=== PATIENT | male | born 1960 | race Caucasian/White ===

== ENCOUNTER 2023-06-03 10:00 | Outpatient (OUT) | payer OTHER, SELFPAY ==
--- NOTE | 2023-06-03 10:07 | CT_ITS ---
[address] [address] Patient Name: LYNETTE RODRIGUEZ MRN: [id number] date: 1960 Sex: M Assigned Patient Location: CT Current Patient Location: CT Accession/Order Number: [id number] Exam Date: 06/03/2023 10:11 Report Date: 06/03/2023 14:10 At the request of: ELSY HANLEY Procedure: CT chest wo con EXAMINATION: CT chest wo con HISTORY: Pulmonary Nodule follow-up COMPARISON: CT chest 06/06/2022, 11/23/2020 TECHNIQUE: Axial, Coronal, and Sagittal images were created without the administration of IV contrast material. Dose reduction techniques were achieved by using automated exposure control and/or adjustment of mA and/or kV according to patient size and/or use of iterative reconstruction technique. FINDINGS: LUNGS: Right lateral cardiac phrenic angle stable 6 mm nodule. Lateral left upper lobe at level of hilum stable 4 mm nodule. Stable areas of scarring within posterior right lung base and posterior lateral left lung base near the costophrenic angles. No new or suspicious findings. PLEURA: No mass, effusion, or pneumothorax. VASCULATURE: No abnormality. DOMINGO: No mass or pathologic adenopathy. MEDIASTINUM: No mass or pathologic adenopathy. CARDIAC: No enlargement, pericardial thickening, or pericardial effusion. AORTA: No aneurysm or dissection. CHEST WALL: No mass or axillary adenopathy BONES: No bone lesion or fracture. LIMITED ABDOMEN: No suspicious findings. Limited images of the upper abdomen. OTHER: Negative. CT/CT chest wo con IMPRESSION: 1. Lung-RADS 2- Benign Appearance or Behavior. Nodules with a very low likelihood of becoming a clinically active cancer due to size or lack of growth. Follow-up CT Chest in 1 year. Electronically authenticated by: JOSE YING Date: 06/03/2023 14:10
== END 2023-06-03 10:01 | disposition home or self-care (01) ==
LOC: CT 10:00
PROVIDERS: PCP Internal Medicine; Visit Provider Internal Medicine
DX: R91.1 Solitary pulmonary nodule (principal)
CPT/HCPCS: 71250

== ENCOUNTER 2023-06-09 09:02 | Outpatient (OUT) | payer OTHER, SELFPAY ==
--- OUTSIDE RECORDS SUMMARY | 2023-06-09 09:21 | XMS_ITS | CCD ---
Author Name Unknown Address [address] [facility] [address] [place] [address] Organization [facility] Care Team Providers Care Payment Collector Name Role Phone PROVIDER, UNKNOWN Attending Unavailable PROVIDER, UNKNOWN Admitting Unavailable JH OGLESBY Referring Unavailable Mp Jaquez Unavailable Sixto Romeo II Unavailable Cindy Reed Unavailable Jose Mccann Unavailable Jeniffer Bañuelos Unavailable Sixto Romeo II Admitting UnavailSixto Jain II Attending Unavailabl e Jose Mccann Primary Care Unavailable Jeniffer Bañuelos Admitting Unavailable Jeniffer Bañuelos Attending Unavailable Jose Mccann Primary Care Unavailable DO Jose Mccann Primary Care Provider AARTI Bañuelos Attending Provider RAMY, DR CHIN Admitting Unavailable BALL, DR CHIN Primary Care Unavailable RAMY, DR CHIN Consulting Unavailable RAMY, DR CHIN Attending Unavailable HEDY JOINER V Consulting Unavailable REQUEST, DR GARCIA LISTED Admitting Unavaila ble RAMY, DR CHIN Primary Care Unavailable REQUEST, DR GARCIA LISTED Consulting Unavaila ble REQUEST, DR GARCIA LISTED Attending Unavaila ble RAMY, DR CHIN Primary Care Unavailable RAMY, DR CHIN Consulting Unavailable RAMY, DR CHIN Attending Unavailable RAMY, DR CHIN Admitting Unavailable HEDY JOINER V Consulting Unavailable RAMY, DR CHIN Primary Care Unavailable RAMY, DR CHIN Consulting Unavailable RAMY, DR CHIN Attending Unavailable BALL, DR CHIN Admitting Unavailable BALL, DR CHIN Admitting Unavailable BALL, DR CHIN Primary Care Unavailable RAMY, DR CHIN Consulting Unavailable RAMY, DR CHIN Attending Unavailable JOSE YING Consulting Unavailable Medications Current Medications Medication Drug Class(es) Dates Sig (Normalized) Sig (Original) acetaminophen 500 mg oral tablet (18 sources) Start: 05-31-2021 take 2 tablets by mouth every eight hours as needed for pain Acetaminophen 500 MG 2 tablets for pain Orally every 8 hrs NEEDED for 30 days MED TO BED UPON DISCHARGE 06/25/2021 May, Active acetaminophen 325 mg / HYDROcodone bitartrate 5 mg oral tablet (1 source) Opioid Agonist Start: 04-09-2021 [id number] 60 actuat albuterol 0.09 mg/actuat metered dose inhaler (4 sources) beta2-Adrenergic Agonist Start: 08-24-2022 take 2 puff(s) by inhalation four times daily as needed Albuterol Sulfate HFA 108 (90 Base) MCG/ACT 2 puffs Inhalation 4 times a day prn August, Active Start: 08-24-2022 take 2 puff(s) by in halation four times daily as needed Albuterol Sulfate HFA 108 (90 Base) MCG/ACT 2 puffs Inhalation 4 times a day prn August, Active allopurinol 100 mg oral tablet (20 sources) Xanthine Oxidase Inhibitor Start: 04-27-2019 take 100 mg by mouth once daily Allopurinol Active 100 MG PO Daily April 27, 2019 1:00am amLODIPine 5 mg oral tablet (1 source) Dihydropyridine Calcium Channel Ana Maria Start: 04-27-2019 take 5 mg by mouth once daily Amlodipine Active 5 MG PO Daily April 27, 2019 1:00am aspirin 81 mg oral tablet (15 sources) Platelet Aggregation Inhibitor, Nonsteroidal Anti-inflammatory Drug Start: 05-31-2021 take 1 tablet by mouth twice daily Aspirin 81 MG 1 tablet Orally BID for 35 days MED TO BED UPON DISCHARGE 06/25/2021 May, Active Start: 04-28-2019 take 81 mg by mouth once daily Aspirin Active 81 MG PO Daily April 28, 2019 1:00am atorvastatin 20 mg oral tablet (20 sources) HMG-CoA Reductase Inhibitor Start: 04-28-2019 take 20 mg by mouth once daily in the evening Atorvastatin Active 20 MG PO Every evening April 28, 2019 1:00am cefadroxil 500 mg oral capsule (5 sources) Cephalosporin Antibacterial Start: 08-01-2021 take 1 capsule by mouth every twelve hours Cefadroxil 500 MG 1 tablet Orally every 12 hrs for 7 days 20 Apr, 2022 Active Start: 05-31-2021 take 1 capsule by [facility] every twelve hours Cefadroxil 500 MG 1 tablet Orally every 12 hrs for 7 days MED TO BED UPON DISCHARGE 06/25/2021 May, Active celecoxib 200 mg oral capsule (5 sources) Nonsteroidal Anti-inflammatory Drug Start: 05-31-2021 take 1 capsule by mouth every twelve hours Celecoxib 200 MG 1 capsule with food Orally Twice a day for 30 day(s) MED TO BED UPON DISCHARGE 06/25/2021 May, Active docusate sodium 50 mg / sennosides, fci 8.6 mg oral tablet (4 sources) Start: 05-31-2021 take 2 tablets by mouth every twenty-four hours Senokot S 8.6-50 MG 2 tablets Orally Once a day for 30 day(s) MED TO BED UPON DISCHARGE 06/25/2021 May, Active doxycycline hyclate 100 mg oral tablet (4 sources) Tetracycline-class Drug Start: 08-24-2022 take 1 tablet by mouth every twelve hours Doxycycline Hyclate 100 MG 1 tablet Orally Twice a day for 10 day(s) August, Active ergocalciferol 1.25 mg oral capsule (7 sources) Provitamin D2 Compound Start: 06-05-2021 take 1250 ug by mouth every week Ergocalciferol (Vitamin D2) Active 1250 MCG PO every week June 05, 2021 1:00am takes every Start: 05-21-2021 take 1 capsule by [facility] every week Ergocalciferol 1.25 MG (08823 UT) 1 capsule Orally Once a week for 56 days May, Active ibuprofen 200 mg oral tablet (20 sources) Nonsteroidal Anti-inflammatory Drug take 1 tablet by mouth three times daily at mealtime as needed Ibuprofen 200 MG 1 tablet with food or milk as needed Orally Three times a day Active lisinopril 40 mg oral tablet (20 sources) Angiotensin Converting Enzyme Inhibitor Start: 04-27-19 take 40 mg by mouth once daily Lisinopril Active 40 MG PO Daily April 27, 2019 1:00am metoprolol tartrate 25 mg oral tablet (20 sources) beta-Adrenergic Ana Maria Start: 06-05-19 take 12.5 mg by mouth once daily Metoprolol Tartrate Active 12.5 MG PO Daily June 05, 2021 3:03pm Start: 04-28-2019 End: 06-05-2021 take 12.5 mg by mouth twice daily Metoprolol Tartrate Discontinued 12.5 MG PO Twice daily April 28, 2019 1:00am June 05, 2021 3:03pm take 1 tablet by andreina th twice daily Metoprolol Tartrate 25 MG TAKE 1 TABLET BY MOUTH TWICE A DAY for 90 Active take 1 tablet by andreina th every twenty-four hours Metoprolol Succinate ER 25 MG 1 tablet Orally Once a day Active morphine sulfate 15 mg extended release oral tablet (4 sources) Opioid Agonist Start: 05-31-2021 take 1 tablet by mouth every twelve hours for pain Morphine Sulfate ER 15 MG 1 tablet for breakthrough pain only Orally every 12 hrs for 5 days MED TO BED UPON DISCHARGE 06/25/2021 May, Active nitroglycerin 0.4 mg sublingual tablet (1 source) Nitrate Vasodilator Start: 04-28-2019 Nitroglycerin Active 0.4 MG SUBLINGUAL Every 5 minutes x 3 doses April 28, 2019 1:00am ondansetron 8 mg oral tablet (4 sources) Serotonin-3 Receptor Antagonist Start: 05-31-2021 take 1 tablet by mouth three times daily as needed for nausea Ondansetron HCl 8 MG 1 tablet as needed for nausea Orally TID for 10 days MED TO BED UPON DISCHARGE 06/25/2021 May, Active oxyCODONE hydrochloride 5 mg oral tablet (4 sources) Opioid Agonist Start: 05-31-2021 take 1 tablet by mouth every four hours as needed for pain oxyCODONE HCl 5 MG 1 tablet as needed for pain Orally every 4 hrs for 7 days MED TO BED UPON DISCHARGE 06/25/2021 May, Active polyethylene glycol 3350 19022 mg powder for oral solution (4 sources) Osmotic Laxative Start: 05-31-2021 MiraLax 17 GM 1 packet mixed with 8 ounces of fluid Orally Once a day for 7 days MED TO BED UPON DISCHARGE 06/25/2021 May, Active predniSONE 20 mg oral tablet (4 sources) Start: 08-24-2022 take 1 tablet by mouth every twelve hours predniSONE 20 MG 1 tablet Orally bid for 5 day(s) August, Active traMADol hydrochloride 50 mg oral tablet (4 sources) Opioid Agonist Start: 05-31-2021 take 1 tablet by mouth every six hours as needed for pain traMADol HCl 50 MG 1 tablet as needed for pain Orally every 6 hrs for 10 days MED TO BED UPON DISCHARGE 06/25/2021 17 May, 2021 Active Wrist Splint/Cock-Up/Left L - (2 sources) Start: 08-07-2022 Wrist Splint/Cock-Up/Left L - as directed wrist splint was not dispensed Jul, Active Problems Active Problems Problem Classification Problem Date Documented Date Episodic/Chronic Chronic obstructive pulmonary disease and bronchiectasis (1 source) Bronchitis, not specified as acute or chronic Episodic Disorders of lipid metabolism (12 sources) Hypercholesterolemia; Translations: [Pure hypercholesterolemia, unspecified] Chronic Essential hypertension (12 sources) Hypertensive disorder; Translations: [Essential (primary) hypertension] Chronic Genitourinary symptoms and ill-defined conditions (3 sources) Polyuria; Translations: [Polyuria] Episodic Nonspecific chest pain (1 source) Chest pain; Translations: [Chest pain, unspecified] 04-27-2019 Episodic Osteoarthritis (20 sources) Arthritis of left hip; Translations: [Unilateral primary osteoarthritis, left hip] Onset: 05-09-2021 Resolved: 09-12-2021 Chronic Osteoporosis (20 sources) Senile osteoporosis; Translations: [Age-related osteoporosis without current pathological fracture] Onset: 05-09-2021 Resolved: 05-09-2021 Chronic Other connective tissue disease (14 sources) History of total replacement of left hip joint; Translations: [Presence of left artificial hip joint] Chronic Other connective tissue disease (3 sources) Presence of left artificial hip joint Onset: 08-01-2021 Resolved: 09-12-2021 Chronic Other connective tissue disease (10 sources) H/O: gout; Translations: [Personal history of other diseases of the musculoskeletal system and connective tissue] Episodic Other connective tissue disease (1 source) Personal history of other diseases of the musculoskeletal system and connective tissue Episodic Other lower respiratory disease (10 sources) Nodule of lung; Translations: [Solitary pulmonary nodule] Episodic Other lower respiratory disease (7 sources) Solitary pulmonary nodule; Translations: [SOLITARY PULMONARY NODULE] Onset: 06-06-2022 Episodic Other male genital disorders (5 sources) Other specified disorders of the male genital organs; Translations: [OTHER SPEC D/O MALE GENITAL ORGANS] Onset: 07-10-2022 Episodic Other nervous system disorders (20 sources) Carpal tunnel syndrome of left wrist; Translations: [Carpal tunnel syndrome, left upper limb] Chronic Other nervous system disorders (1 source) Carpal tunnel syndrome, left upper limb Onset: 04-03-2021 Resolved: 04-03-2021 Chronic Other non-traumatic joint disorders (1 source) Pain in left wrist Episodic Other screening for suspected conditions (not mental disorders or infectious disease) (12 sources) Prostate specific antigen measurement; Translations: [Encounter for screening for malignant neoplasm of prostate] Onset: 06-14-2022 Episodic Residual codes; unclassified (20 sources) Obstructive sleep apnea syndrome; Translations: [Obstructive sleep apnea (adult) (pediatric)] Chronic Residual codes; unclassified (8 sources) Obstructive sleep apnea (adult) (pediatric) Onset: 05-09-2021 Resolved: 09-12-2021 Chronic Sprains and strains (1 source) Unspecified sprain of left wrist, initial encounter Episodic Substance-related disorders (16 sources) Tobacco dependence in remission; Translations: [Nicotine dependence, cigarettes, in remission] Chronic Unclassified (1 source) Pain in left wrist; Translations: [Pain in left wrist] Onset: 08-07-2022 Unclassified (1 source) M16.12 - Unilateral primary osteoarthritis, left hip; Translations: [M16.12 - Unilateral primary osteoarthritis, left hip] Onset: 09-12-2021 Past or Other Problems Problem Classification Problem Date Documented Date Episodic/Chronic Other aftercare (1 source) Other care home (current) drug therapy Onset: 05-09-2021 Resolved: 05-09-2021 Episodic Other non-traumatic joint disorders (1 source) Pain in left hip Onset: 05-09-2021 Resolved: 05-09-2021 Episodic Residual codes; unclassified (3 sources) Other specified postprocedural states Onset: 04-09-2021 Resolved: 07-02-2021 Episodic Unclassified (1 source) Polyuria R35.89 Results Test Name Value Interpretation Reference Range Facility GLYCOHEMOGLOBIN A1Con 2022 ADA RECOMMENDATION SEE BELOW Normal [facility] Comment on above: Result Comment: ADA RECOMMENDED LIMIT 4.0 - 6.0 ADA THERAPEUTIC TARGET < 7.0 ACTION SUGGESTED > 7.0 Performed By: #### D ATA1C #### [facility] [address], [place] [address] Dr. Sydnie Reeves Glucose [Mass/Vol] 120 mg/dL Normal [facility] Comment on above: Performed By: #### D ATA1C #### [facility] [address], [place] [address] Dr. Sydnie Reeves HbA1c (Bld) [Mass fraction] 5.8 % Normal 4.5-6.2 [facility] Comment on above: Performed By: #### D ATA1C #### [facility] [address], [place] [address] Dr. Sydnie Reeves XR wrist LT min 3V*on 2022 XR wrist LT min 3V* [facility] [employer] Other XR wrist LT min 3V* [facility] [employer] Other XR wrist LT min 3V* [address] [place] [address] [employer] Other XR wrist LT min 3V* [place] [address] [employer] Other XR wrist LT min 3V* XRay Report [place] [employer] Other XR wrist LT min 3V* Signed [employer] Other XR wrist LT min 3V* Patient: Lynette Santamaria MR#: [id number] [place] [employer] Other XR wrist LT min 3V* 2 [employer] Other XR wrist LT min 3V* : 1960 Acct:[id number] [employer] Other XR wrist LT min 3V* Age/Sex: 62 / M ADM Date: 08/07/22 [employer] Other XR wrist LT min 3V* Loc: XDUCLY Room: Type: [facility] CLI [employer] Other XR wrist LT min 3V* Attending Dr: Jeniffer BROUSSARD [employer] Other XR wrist LT min 3V* Copies to: AARTI Escobar [employer] Other XR wrist LT min 3V* Ordering Provider: AARTI Escobar [employer] Other XR wrist LT min 3V* Date of Service: 08/07/22 [employer] Other XR wrist LT min 3V* XR/XR wrist LT min 3V*: Left wrist pain [employer] Other XR wrist LT min 3V* 4 views of the LEFT wrist plain film [employer] Other XR wrist LT min 3V* COMPARISON: None [employer] Other XR wrist LT min 3V* HISTORY: LEFT wrist injury. Ulnar-sided pain and swelling. [employer] Other XR wrist LT min 3V* Acute findings: None corticated bony density near the distal radius likely represents benign [employer] Other XR wrist LT min 3V* finding. [employer] Other XR wrist LT min 3V* Degenerative change: Moderate 1st carpometacarpal degenerative change present. Mild prominence of [employer] Other XR wrist LT min 3V* the scapholunate interspace identified. 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 [employer] Other XR wrist LT min 3V* Soft tissue findings : Mild chondrocalcinosis of the triangular fibrocartilage present. [employer] Other XR wrist LT min 3V* Joint effusion: None [employer] Other XR wrist LT min 3V* Postop changes: None [employer] Other XR wrist LT min 3V* XR/XR wrist LT min 3V* [employer] Other XR wrist LT min 3V* IMPRESSION: No acute bony findings. [employer] Other XR wrist LT min 3V* Impression dictated by: Oz Clancy M.D.08/07/2022 10:08 AM [employer] Other XR wrist LT min 3V* Dictation Location: [place] [address] [employer] Other XR wrist LT min 3V* Transcribed By: PWS 08/07/22 1008 [employer] Other XR wrist LT min 3V* Dictated By: Oz Clancy DO 08/07/22 1005 [employer] Other XR wrist LT min 3V* Signed By: [employer] Other XR wrist LT min 3V* 08/07/22 1008 No rt [employer] Other XR wrist LT min 3V* [facility] [place] [address] [place] [address] XRay Report Signed Patient: Lynette Santamaria MR#: [id number] 2 : 1960 Acct:[id number] Age/Sex: 62 / M ADM Date: 08/07/22 Loc: [facility] Room: Type: [facility] Attending Dr: Jeniffer BROUSSARD Copies to: AARTI Escobar Ordering Provider: AARTI Escobar Date of Service: 08/07/22 XR/XR wrist LT min 3V*: Left wrist pain 4 views of the LEFT wrist plain film COMPARISON: None HISTORY: LEFT wrist injury. Ulnar-sided pain and swelling. Acute findings: None corticated bony density near the distal radius likely represents benign finding. Degenerative change: Moderate 1st carpometacarpal degenerative change present. Mild prominence of the scapholunate interspace identified. 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 Soft tissue findings: Mild chondrocalcinosis of the triangular fibrocartilage present. Joint effusion: None Postop changes: None XR/XR wrist LT min 3V* IMPRESSION: No acute bony findings. Impression dictated by: Oz Clancy M.D.08/07/2022 10:08 AM Dictation Location: [place] [address] Transcribed By: [facility] 08/07/22 1008 Dictated By: Oz Clancy DO 08/07/22 1005 Signed By: 08/07/22 1008 [facility] US SCROTUMon 07-11-2022 US SCROTUM EXAMINATION: US SCROTUM HISTORY: Disorder of male genital organ COMPARISON: No relevant comparison available. TECHNIQUE: High-resolution sonographic imaging of the scrotum and contents was performed. FINDINGS: The right testicle is normal in size, contour and homogeneous echotexture measuring 4.0 x 2.9 x 3.1 cm., Normal Color and Doppler flow. The right epididymis contains a circumscribed oval cystic lesion with internal debris measuring 2.5 x 1.8 x 1.5 cm. I favor a spermatocele. Moderate right hydrocele measuring 4.1 cm. No right varicocele. The left testicle is normal in size, contour and homogeneous echotexture measuring 3.7 x 2.3 x 2.8 cm, normal Color and Doppler flow. The left epididymis is normal in appearance. Moderate left hydrocele measuring 4.6 cm. No left varicocele IMPRESSION: 2.5 cm right epididymal cystic lesion, I favor a spermatocele Moderate bilateral hydroceles Electronically authenticated by: HEDY JOINER Date: 2022-07-11 07:55 Normal [facility] CBC AUTO DIFFon 06-10-2022 BASO # 0.0 103/ul Normal 0.0-0.1 [facility] Comment on above: Performed By: #### C BC #### [facility] [address] [place] [address] Dr. Sydnie Reeves Basophils/100 WBC (Bld) 0.4 % Normal 0.2-2.0 [facility] Comment on above: Performed By: #### C BC #### [facility] [address] [place] [address] Dr. Sydnie Reeves EO # 0.2 103/ul Normal 0.0-0.7 [facility] Comment on above: Performed By: #### C BC #### [facility] [address] [place] [address] Dr. Sydnie Reeves Eosinophils/100 WBC (Bld) 3.3 % Normal 0.9-7.0 [facility] Comment on above: Performed By: #### C BC #### [facility] [address] [place] [address] Dr. Sydnie Reeves Erythrocyte distribution width (RBC) [Ratio] 13.1 % Normal 11.0-15.0 [facility] Comment on above: Performed By: #### C BC #### [facility] [address] [place] [address] Dr. Sydnie Reeves Hematocrit (Bld) [Volume fraction] 44.0 % Normal 42.0-54.0 [facility] Comment on above: Performed By: #### C BC #### [facility] [address] [place] [address] Dr. Sydnie Reeves Hemoglobin (Bld) [Mass/Vol] 15.1 g/dL Normal 14.0-18.0 [facility] Comment on above: Performed By: #### C BC #### [facility] [address] [place] [address] Dr. Sydnie Reeves IG # 0.03 10e3/ul Normal 0.00-0.03 [facility] Comment on above: Performed By: #### C BC #### [facility] [address] [place] [address] Dr. Sydnie Reeves IG % 0.7 % Critically high 0.0-0.5 [facility] Comment on above: Performed By: #### C BC #### [facility] [address] [place] [address] Dr. Sydnie Reeves LYMPH # 1.2 103/ul Normal 1.2-3.8 [facility] Comment on above: Performed By: #### C BC #### [facility] [address] [place] [address] Dr. Sydnie Reeves Lymphocytes/100 WBC (Bld) 24.9 % Normal 20.5-60.0 [facility] Comment on above: Performed By: #### C BC #### [facility] [address] [place] [address] Dr. Sydnie Reeves MANUAL DIFF REQ NO Normal [facility] Comment on above: Performed By: #### C BC #### [facility] [address] [place] [address] Dr. Sydnie Reeves MCH (RBC) [Entitic mass] 30.4 pg Normal 25.9-34.0 [facility] Comment on above: Performed By: #### C BC #### [facility] [address] [place] [address] Dr. Sydnie Reeves MCHC (RBC) [Mass/Vol] 34.3 g/dL Normal 29.9-35.2 [facility] Comment on above: Performed By: #### C BC #### [facility] [address] [place] [address] Dr. Sydnie Reeves MCV (RBC) [Entitic vol] 88.7 fL Normal 80.0-94.0 [facility] Comment on above: Performed By: #### C BC #### [facility] [address] [place] [address] Dr. Sydnie Reeves MONO # 0.5 103/ul Normal 0.3-0.8 [facility] Comment on above: Performed By: #### C BC #### [facility] [address] [place] [address] Dr. Sydnie Reeves Monocytes/100 WBC (Bld) 10.2 % Normal 1.7-12.0 [facility] Comment on above: Performed By: #### C BC #### [facility] [address] [place] [address] Dr. Sydnie Reeves NEUT # 2.8 103/ul Normal 1.4-6.5 [facility] Comment on above: Performed By: #### C BC #### [facility] [address] [place] [address] Dr. Sydnie Reeves Neutrophils/100 WBC (Bld) 60.5 % Normal 43.0-75.0 [facility] Comment on above: Performed By: #### C BC #### [facility] [address] [place] [address] [address] Sydnie Reeves Platelet mean volume (Bld) [Entitic vol] 10.5 fL Normal 9.5-13.5 [facility] Comment on above: Performed By: #### C BC #### [facility] [address] [place] [address] [address] Sydnie Reeves PLT 202 103/ul Normal 150-450 [facility] Comment on above: Performed By: #### C BC #### [facility] [address] [place] [address] [address] Sydnie Reeves RBC 4.96 106/ul Normal 4.70-6.10 [facility] Comment on above: Performed By: #### C BC #### [facility] [address] [place] [address] [address] Sydnie Reeves WBC 4.6 103/ul Normal 4.0-11.0 [facility] Comment on above: Performed By: #### C BC #### [facility] [address] [place] [address] [address] Sydnie Reeves Complete Blood Count and Dif julio 06-10-2022 Anisocytosis Ql (Bld) [facility] [employer] Other Basophilic stippling LM Ql (Bld) [facility] [employer] Other RBC morphology finding Nom (Bld) [facility] [employer] Other Comprehensive Metabolic Pane pablo 06-10-2022 Comprehensive Metabolic Panel [facility] [employer] Other LIPID PROFILEon 06-10-2022 CHOL-HDL RATIO NORM SEE BELOW Normal [facility] Comment on above: Result Comment: 3.3 - 4.4 LOW RISK 4.4 - 7.1 AVERAGE RISK 7.1 - 11.0 MODERATE RISK >11.0 HIGH RISK Performed By: #### C MP, LIPID #### [facility] [address] [place] [address] [address] Sydnie Reeves Cholesterol [Mass/Vol] 172 mg/dL Normal <=200 [facility] Comment on above: Performed By: #### C MP, LIPID #### [facility] [address] [place] [address] [address] Sydnie Reeves Cholesterol in HDL [Mass/Vol] 71 mg/dL Critically high 40-60 [facility] Comment on above: Performed By: #### C MP, LIPID #### [facility] [address] [place] [address] [address] Sydnie Reeves Cholesterol in LDL [Mass/Vol] 62.2 mg/dL Normal [facility] Comment on above: Performed By: #### C MP, LIPID #### [facility] [address] [place] [address] [address] Sydnie Reeves Cholesterol.total/C holesterol in HDL [Mass ratio] 2.4 {ratio} Normal [facility] Comment on above: Performed By: #### C MP, LIPID #### [facility] [address] [place] [address] [address] Sydnie Reeves HDL NORMAL > or = 60 mg/dl - LO W CARDIOVASCULAR RISK <40 mg/dl - HIGH CARDIOVASCULAR RISK Normal [facility] Comment on above: Performed By: #### C MP, LIPID #### [facility] [address] [place] [address] [address] Sydnie Reeves LDL CALC NORMAL SEE BELOW Normal [facility] [facility] Comment on above: Result Comment: <100 mg/dl OPTIMAL 100 - 129 mg/dl NEAR OR ABOVE OPTIMAL 130 - 159 mg/dl BORDERLINE HIGH 160 - 189 mg/dl HIGH >190 mg/dl VERY HIGH Performed By: #### C MP, LIPID #### [facility] [address] [address] [address] Sydnie Reeves Triglyceride [Mass/Vol] 194 mg/dL Critically high <=150 [facility] Comment on above: Performed By: #### C MP, LIPID #### [facility] [address] [address] [address] Sydnie Reeves VLDL CALC 38.8 mg/dL Normal [facility] Comment on above: Performed By: #### C MP, LIPID #### [facility] [address] [address] [address] Sydnie Reeves PROF 14(COMP METB)on 023 Albumin [Mass/Vol] 3.8 g/dL Normal 3.4-5.0 [facility] Comment on above: Performed By: #### C MP, LIPID #### [facility] [address] [address] [address] Sydnie Reeves Albumin/Globulin [Mass ratio] 1.2 {ratio} Normal [facility] Comment on above: Performed By: #### C MP, LIPID #### [facility] [address] [address] [address] Sydnie Reeves ALP [Catalytic activity/Vol] 102 U/L Normal 46-116 [facility] Comment on above: Performed By: #### C MP, LIPID #### [facility] [address] [address] [address] Sydnie Reeves ALT [Catalytic activity/Vol] 39 U/L Normal 16-63 [facility] Comment on above: Performed By: #### C MP, LIPID #### [facility] [address] [address] [address] Sydnie Reeves Anion gap [Moles/Vol] 10.7 mmol/L Normal [facility] Comment on above: Performed By: #### C MP, LIPID #### [facility] [address] [address] [address] Sydnie Reeves AST [Catalytic activity/Vol] 23 U/L Normal 15-37 [facility] Comment on above: Performed By: #### C MP, LIPID #### [facility] [address] [address] [address] Sydnie Reeves Bilirubin [Mass/Vol] 0.7 mg/dL Normal 0.2-1.0 [facility] Comment on above: Performed By: #### C MP, LIPID #### [facility] [address] [address] [address] Sydnie Reeves Calcium [Mass/Vol] 9.7 mg/dL Normal 8.5-10.1 [facility] Comment on above: Performed By: #### C MP, LIPID #### [facility] [address] [address] [address] Sydnie Reeves Chloride [Moles/Vol] 100 mmol/L Normal 98-107 [facility] Comment on above: Performed By: #### C MP, LIPID #### [facility] [address] [place] [address] Dr. Sydnie Reeves CO2 [Moles/Vol] 30.4 mmol/L Normal 21.0-32.0 [facility] Comment on above: Performed By: #### C MP, LIPID #### [facility] [address] [place] [address] Dr. Sydnie Reeves Creatinine [Mass/Vol] 0.84 mg/dL Normal 0.70-1.30 [facility] Comment on above: Performed By: #### C MP, LIPID #### [facility] [address] [place] [address] Dr. Sydnie Reeves EGFR-AF LIBERIAN >60 Normal >=60 [facility] Comment on above: Performed By: #### C MP, LIPID #### [facility] [address] [place] [address] Dr. Sydnie Reeves EGFR-NON AF LIBERIAN >60 Normal >=60 [facility] Comment on above: Performed By: #### C MP, LIPID #### [facility] [address] [place] [address] Dr. Sydnie Reeves Globulin (S) [Mass/Vol] 3.3 g/dL Normal [facility] Comment on above: Performed By: #### C MP, LIPID #### [facility] [address] [place] [address] Dr. Sydnie Reeves Glucose [Mass/Vol] 125 mg/dL Critically high 74-106 T [facility] Comment on above: Performed By: #### C MP, LIPID #### [facility] [address] [place] [address] Dr. Sydnie Reeves Potassium [Moles/Vol] 4.1 mmol/L Normal 3.5-5.1 [facility] Comment on above: Performed By: #### C MP, LIPID #### [facility] [address] [place] [address] Dr. Sydnie Reeves Protein [Mass/Vol] 7.1 g/dL Normal 6.4-8.2 [facility] Comment on above: Performed By: #### C MP, LIPID #### [facility] [address] [address] [address] Sydnie Reeves Sodium [Moles/Vol] 137 mmol/L Normal 136-145 [facility] Comment on above: Performed By: #### C MP, LIPID #### [facility] [address] [address] [address] Sydnie Reeves Urea nitrogen [Mass/Vol] 9.0 mg/dL Normal 7.0-18.0 [facility] Comment on above: Performed By: #### C MP, LIPID #### [facility] [address] [address] [address] Sydnie Reeves Urea nitrogen/Creatinine [Mass ratio] 10.7 mg/mg Normal [facility] Comment on above: Performed By: #### C MP, LIPID #### [facility] [address] CHEST WO CONon 06-06-2022 CT CHEST WO CON EXAMINATION: CT CHES T WO CON HISTORY: Solitary nodule of lung , follow-up COMPARISON: CT chest 11/22/2021, 11/23/2020 TECHNIQUE: Axial, Coronal, and Sagittal images were created without the administration of IV contrast material. Dose reduction techniques were achieved by using automated exposure control and/or adjustment of mA and/or kV according to patient size and/or use of iterative reconstruction technique. FINDINGS: LUNGS: Stable 6 mm nodule within right lateral costophrenic angle. Stable 4 mm nodule within posterior segment left upper lobe at level of hilum. Stable area of scarring or round atelectasis near left lateral costophrenic angle. PLEURA: No mass, effusion, or pneumothorax. VASCULATURE: No abnormality. DOMINGO: No mass or pathologic adenopathy. MEDIASTINUM: No mass or pathologic adenopathy. CARDIAC: No enlargement, pericardial thickening, or significant calcification. AORTA: No aneurysm or dissection. CHEST WALL: No mass or axillary adenopathy BONES: No bone lesion or fracture. LIMITED ABDOMEN: No suspicious findings. Limited images of the upper abdomen. OTHER: Negative. IMPRESSION: 1. Lung-RADS 2- Benign Appearance or Behavior. Nodules with a very low likelihood of becoming a clinically active cancer due to size or lack of growth. Follow-up CT Chest in 1 year. Electronically authenticated by: JOSE YING Date: 2022-06-06 16:46 Normal [facility] CT CHEST WO CON A4 Data Other CT CHEST WO CONon 11-22-2021 CT CHEST WO CON EXAMINATION: CT CHES T WO CON HISTORY: Solitary nodule of lung COMPARISON: 05/25/2021, 11/23/2020 TECHNIQUE: Multi-planar CT images were created with IV contrast. Axial, Coronal, and Sagittal images. Dose reduction techniques were achieved by using automated exposure control and/or adjustment of mA and/or kV according to patient size and/or use of iterative reconstruction technique. FINDINGS: LUNGS: Mild bronchiectasis and peribronchial thickening. Bilateral subcentimeter solid pulmonary nodules largest measures 6.2 mm in the right lower lobe, minimally increased from the 2 prior exams where it measured 5.7 mm. Scattered patchy opacities most significant in the right lower lobe subpleural measuring 1.6 cm axial image 108, increased from the prior exam, but stable from 2020. PLEURA: No mass, effusion, or pneumothorax. VASCULATURE: No abnormality. DOMINGO: No mass or adenopathy. MEDIASTINUM: No mass or adenopathy. CARDIAC: No enlargement or pericardial effusion. Mild coronary atherosclerosis AORTA: No aneurysm or dissection. CHEST WALL: No mass or axillary adenopathy. BONES: No bone lesion or fracture. LIMITED ABDOMEN: No suspicious findings. Limited images of the upper abdomen. OTHER: Negative. IMPRESSION: Minimal interval increase in a now 6.2 mm solid right lower lobe nodule, six-month follow-up recommended Electronically authenticated by: HEDY JOINER Date: 2021-11-22 10:02 Normal [facility] XR hip LT min 2V(w/wo pelvis )*on 09-12-2021 XR hip LT min 2V(w/wo pelvis)* [facility] [place] [address] [place] [address] XRay Report Signed Patient: Lynette Santamaria MR#: [id number] 2 : 1960 Acct:[id number] Age/Sex: 61 / M ADM Date: 09/12/21 Loc: SOXD Room: Type: [facility] Attending Dr: Sixto Romeo II, MD Ordering Provider: Sixto Romeo MD Date of Service: 09/12/21 XR/XR hip LT min 2V(w/wo pelvis)*: Arthritis of left hip Copies to: Sixto Romeo MD LEFT HIP - 2 views: 1 view pelvis CLINICAL HISTORY: Left AZ. COMPARISON: Hip series 08/01/2021 FINDINGS: Bilateral hip prostheses are in place without radiographic complication. No acute bony process. Bones are grossly demineralized. Partially visualized SI joint fixation. XR/XR hip LT min 2V(w/wo pelvis)* IMPRESSION: NO ACUTE BONY PROCESS OR EVIDENCE OF HARDWARE COMPLICATION.. Impression dictated by: Fred Mckinley Jr., D.O.09/12/2021 2:51 PM Dictation Location: [place] [address] Transcribed By: [facility] 09/12/21 1451 Dictated By: Fred Mckinley Jr, DO 09/12/21 1449 Signed By: 09/12/21 1451 Normal [facility] C-REACTIVE PROTEINon 021 CRP 1.1 mg/dL High <0.8 [facility] [facility] Comment on above: Performed By: #### C RP #### [facility] [address] [place] [address], ERYTHROCYTE SEDIMENTATION RA Dena 05-30-2020 ESR (Bld) [Velocity] 5 mm/h Normal <=20 [facility] Comment on above: Performed By: #### E SR #### [facility] [address] [place] [address], Progress Noteson 05-30-2020 [employer] Authentication Interface Message Text Patient was identified by name and date of . Kwaku Palafox Patient at risk for falls:No Falls Risk protocol implemented: No Normal [facility] XR RT HIP W/ PELVIS 2-3 VIEW Son 05-30-2020 XR RT HIP W/ PELVIS 2-3 VIEWS EXAMINATION: XR RT HIP W/ PELVIS MIN 2-3 VIEWS CLINICAL HISTORY: S/p AZ, right TECHNOLOGISTS NOTE: COMPARISON: None FINDINGS: Postsurgical changes: Right total hip arthroplasty with satisfactory alignment of the prosthetic devices and osseous structures and no dislocation or hardware failure or loosening. Bones: Internal fixation of the bilateral sacroiliac joints by 2 right and 2 left syndesmotic screws and washers and internal fixation of symphysis pubis by 2 plate and screw devices. No acute fracture, avascular necrosis or destructive bone lesion. 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 No dislocation or diastasis. Included lumbar spine: Osteophytic endplate spurring and bridging of the lower lumbar vertebra. Soft tissues: Heterotopic ossification inferior to the left pubic ramus, superior to the left pubic body and superior pubic ramus and superior to the right iliac crest. Pelvic phleboliths. IMPRESSION: 1. Right total hip arthroplasty in satisfactory alignment. 2. Mild left hip osteoarthritis. 3. Internal fixation of the bilateral sacroiliac joints and symphysis pubis apparent bony ankylosis of the sacroiliac joints, complete on the right and partial on the left. 4. Lower lumbar endplate spondylosis. MACRO: None Normal [facility] CARDIAC STRESS/REST INJE CTIONon 05-19-2019 [facility] CARDIAC STRESS/REST INJECTION Patient Name: LYNETTE SANTAMARIA STUDY: MYOCARDIAL PERFUSION STRESS TEST WITH EXERCISE Performing facility: [facility], [address] [place] [address], [address], [address] Provider: Deandra Gonzalez DO, [facility] PCP: Dr. Emili MCCANN Supervising provider: Santiago Mejia MD, [facility] INDICATION: ACUTE CP HISTORY: Gender: M; Age: 59 y/o ; Height: 180.34 cm; Weight: 337.6937151 kg. High Cholesterol; HTN; CP Quit smoking 10 years ago. COMPARISON: No comparison. ACCESSION NUMBER(S): [id number]; [id number]; [id number] ORDERING CLINICIAN: DEANDRA GONZALEZ TECHNIQUE: ONE DAY protocol. Stress injection: Date:05/19/2019, 33.2 mCi of Myoview IV at peak exercise. Rest injection: Date: 05/19/2019, 11.2 mCi of Myoview IV at rest. Imaging was performed by gated tomographic technique. STRESS TEST DATA: Resting heart rate was 76 BPM. Resting blood pressure was 146/84 mmHg. The patient exercised using a Jordan exercise protocol. 6:18 minutes exercised. 86 % of MPHR achieved for age. 7.1 METS achieved. Maximum heart rate was 139 BPM. Maximum blood pressure was 184/92 mmHg. DTS 6. TEST TERMINATED DUE TO: Fatigue, Dyspnea FINDINGS: STRESS TEST RESULTS: Resting electrocardiogram revealed normal sinus rhythm. The patient had no significant ECG changes with maximal stress. The patient did not have chest pains/symptoms during the procedure. There was a normal recovery phase. There were occasional isolated PVCs and occasional isolated PACs with one episode of i ventricular couplet. IMAGING RESULTS: Image quality was good. Rest and stress tomographic images were reviewed and revealed normal perfusion without evidence of ischemia, myocardial infarction, or left ventricular dilatation with stress. Overall left ventricular systolic function appeared to be normal without regional wall motion abnormalities. LV ejection fraction was 63 %. TID is 0.837 and is normal. There was no evidence of attenuation artifact. IMPRESSION: Normal exercise Myoview cardiac perfusion stress test. No evidence of ischemia or myocardial infarction by perfusion imaging. Normal left ventricular systolic function, ejection fraction 63%. No exercise provoked significant ischemic ECG changes or chest pain symptoms. No previous studies are available for comparison. Electronically signed by: SANTIAGO MEJIA MD [facility] Vital Signs Date Time Vital Sign Value Performing Clinician Facility 08-24-2022 12:45-0400 Body height 177.8 cm Jeniffer Bañuelos Other [facility] Other 08-24-2022 12:45-0400 Body mass index (BMI) [Ratio] 33.86 kg/m2 Jeinffer Mercadomond Other [facility] Other 08-24-2022 12:45-0400 Body temperature 98.8 [degF] Jeniffer Mercadomond Other [facility] Other 08-24-2022 12:45-0400 Body weight 107.05 kg Jeniffer Mercadomond Other [facility] Other 08-24-2022 12:45-0400 Diastolic blood pressure 78 mm[Hg] Jeniffer Edda Other [facility] Other 08-24-2022 12:45-0400 Respiratory rate 18 /min Jeniffer Edda Other [facility] Other 08-24-2022 12:45-0400 SaO2% (BldA) [Mass fraction] 95 % Jeniffer Edda Other [facility] Other 08-24-2022 12:45-0400 Systolic blood pressure 144 mm[Hg] Jeniffer Edda Other [facility] Other 08-07-2022 10:30-0400 Body height 177.8 cm Jeniffer Edda Other [facility] Other 08-07-2022 10:30-0400 Body mass index (BMI) [Ratio] 34.43 kg/m2 Jeniffer Edda Other [facility] Other 08-07-2022 10:30-0400 Body temperature 97.6 [degF] Jeniffer Edda Other [facility] Other 08-07-2022 10:30-0400 Body weight 108.86 kg Jeniffer Edda Other [facility] Other 08-07-2022 10:30-0400 Respiratory rate 18 /min Jeniffer Edda Other [facility] Other 08-07-2022 10:30-0400 SaO2% (BldA) [Mass fraction] 96 % Jeniffer Edda Other [facility] Other 06-25-2022 14:45-0400 Body height 177.8 cm Jose Ball Other [facility] Other 06-25-2022 14:45-0400 Body mass index (BMI) [Ratio] 34.38 kg/m2 Jose Ball Other [facility] Other 06-25-2022 14:45-0400 Body weight 108.68 kg Jose Ball Other [facility] Other 06-25-2022 14:45-0400 Diastolic blood pressure 86 mm[Hg] Jose Ball Other [facility] Other 06-25-2022 14:45-0400 Respiratory rate 12 /min Jose Ball Other [facility] Other 06-25-2022 14:45-0400 Systolic blood pressure 146 mm[Hg] Jose Ball Other [facility] Other 05-20-2022 11:00-0500 Body height 177.8 cm Jose Ball Other [facility] Other 05-20-2022 11:00-0500 Body mass index (BMI) [Ratio] 34.35 kg/m2 Jose Ball Other [facility] Other 05-20-2022 11:00-0500 Body weight 108.59 kg Jose Ball Other [facility] Other 05-20-2022 11:00-0500 Diastolic blood pressure 78 mm[Hg] Jose Ball Other [facility] Other 05-20-2022 11:00-0500 Respiratory rate 12 /min Jose Ball Other [facility] Other 05-20-2022 11:00-0500 Systolic blood pressure 122 mm[Hg] Jose Mccann Other [facility] Other 09-12-2021 14:00-0400 Body height 177.8 cm Sixto Mineral II Other [facility] Other 09-12-2021 14:00-0400 Body mass index (BMI) [Ratio] 36.44 kg/m2 Sixto Mineral II Other [facility] Other 09-12-2021 14:00-0400 Body weight 115.21 kg Sixto Ousmane II Other [facility] Other 08-01-2021 12:15-0400 Body height 177.8 cm Sixto Mineral II Other [facility] Other 08-01-2021 12:15-0400 Body mass index (BMI) [Ratio] 36.44 kg/m2 Sixto Ousmane II Other [facility] Other 08-01-2021 12:15-0400 Body weight 115.21 kg Sixto Mineral II Other [facility] Other 06-21-2021 14:15-0500 Body height 177.8 cm Sixto Mineral II Other [facility] Other 06-21-2021 14:15-0500 Body mass index (BMI) [Ratio] 36.44 kg/m2 Sixto Mineral II Other [facility] Other 06-21-2021 14:15-0500 Body weight 115.21 kg Sixto Ousmane II Other [facility] Other 05-31-2021 15:15-0500 Body height 177.8 cm Sixto Ousmane II Other [facility] Other 05-31-2021 15:15-0500 Body mass index (BMI) [Ratio] 36.44 kg/m2 Sixto Mineral II Other [facility] Other 05-31-2021 15:15-0500 Body weight 115.21 kg Sixto Ousmane II Other [facility] Other 05-09-2021 11:30-0500 Body height 177.8 cm Sixto Ousmane II Other [facility] Other 05-09-2021 11:30-0500 Body mass index (BMI) [Ratio] 36.44 kg/m2 Sixto Ousmane II Other [facility] Other 05-09-2021 11:30-0500 Body weight 115.21 kg Sixto Mineral II Other [facility] Other 04-03-2021 14:30-0500 Body height 177.8 cm Mp Olexa Other [facility] Other 04-03-2021 14:30-0500 Body mass index (BMI) [Ratio] 36.44 kg/m2 Mp Olexa Other [facility] Other 04-03-2021 14:30-0500 Body weight 115.21 kg Mp Olexa Other [facility] Other Encounters Encounter Date Encounter Type Care Provider Facility Start: 05-23-2023 End: 05-23-2023 ambulatory Jose Ball Other [facility] Other Start: 05-23-2023 [facility] Start: 03-25-2023 End: 03-25-2023 ambulatory Jose Ramy Other [facility] Other Start: 03-25-2023 Telephone encounter [facility] Start: 08-25-2022 End: 08-25-2022 ambulatory Jose Mccann Other [facility] Other Start: 08-25-2022 Telephone encounter Jose [facility] Start: 08-24-2022 End: 08-24-2022 ambulatory Jeniffer Bañuelos Other [facility] Other Start: 08-24-2022 Office outpatient vi sit 15 minutes Jeniffer Bañuelos [facility] Start: 08-22-2022 End: 08-22-2022 ambulatory Jose Mccann Other [facility] Other Start: 08-22-2022 Telephone encounter [facility] Start: 08-21-2022 End: 08-22-[address] GARCIA LISTED REQUEST Facility:[facility] Start: 08-07-2022 Office outpatient vi sit 15 minutes Jeniffer Bañuelos [facility] Start: 08-07-2022 End: 08-07-2022 ambulatory Jeniffer Bañuelos [facility] Work Phone: Start: 08-07-2022 End: 08-07-2022 Patient encounter procedure DO Jose Mccann Work Phone: [facility] Work Phone: Start: 07-10-2022 End: 07-11-[address] JOSE MCCANN Facility:[facility] Start: 06-25-2022 End: 06-25-2022 ambulatory Jose Mccann Other [facility] Other Start: 06-25-2022 Office outpatient vi sit 15 minutes Jose Mccann [facility] Start: 06-14-2022 Encounter for genera l adult medical examination without abnormal findings DR JOSE MCCANN [facility] Start: 06-11-2022 End: 06-11-2022 ambulatory Jose Mccann Other [facility] Other Start: 06-11-2022 Telephone encounter [facility] Start: 06-10-2022 End: 06-11-[address] JOSE MCCANN Facility:[facility] Start: 06-10-2022 End: 06-11-2022 Encounter for general adult medical examination without abnormal findings DR JOSE MCCANN Facility:[facility] Start: 06-06-2022 End: 06-07-[address] JOSE MCCANN Facility:[facility] Start: 05-20-2022 End: 05-20-2022 ambulatory Jose Mccann Other [facility] Other Start: 05-20-2022 Encounter for genera l adult medical examination without abnormal findings Jose Mccann [facility] Start: 05-20-2022 Periodic preventive med est patient 40-64yrs Jose Mccann [facility] Start: 05-18-2022 End: 05-18-2022 ambulatory Jose Mccann Other [facility] Other Start: 05-18-2022 Encounter for genera l adult medical examination without abnormal findings Jose Mccann [facility] Start: 05-18-2022 Telephone encounter [facility] Start: 11-22-2021 End: 11-23-[address] JOSE MCCANN Facility:[facility] Start: 09-12-2021 (Post-Op) Post-Op Sixto Weissle II [facility] Start: 09-12-2021 End: 09-12-2021 ambulatory Sixto Romeo II [facility] Other Start: 08-15-2021 End: 08-15-2021 ambulatory Sixto Romeo II Other [facility] Other Start: 08-15-2021 Office outpatient vi sit 15 minutes Sixto Mineral II [facility] Start: 08-01-2021 (Post-Op) Post-Op Sixto Mineral II [facility] Start: 08-01-2021 End: 08-01-2021 ambulatory Sixto Mineral II Other [facility] Other Start: 07-02-2021 End: 07-02-2021 ambulatory Cindy Reed Other [facility] Other Start: 07-02-2021 Postop follow up vis it related to original px Cindy Reed [facility] Start: 06-21-2021 End: 06-21-2021 ambulatory Sixto Mineral II Other [facility] Other Start: 06-21-2021 Postop follow up vis it related to original px Sixto Mineral II [facility] Start: 06-15-2021 (Prolonged) Prolonge d Services Sixto Mineral II [facility] Start: 06-15-2021 End: 06-15-2021 ambulatory Sixto Mineral II Other [facility] Other Start: 06-12-2021 End: 06-12-2021 ambulatory Sixto Mineral II Other [facility] Other Start: 06-12-2021 Telephone encounter Sixto Ousmane II [facility] Start: 05-31-2021 End: 05-31-2021 ambulatory Sixto Ousmane II Other [facility] Other Start: 05-31-2021 Encounter for other preprocedural examination Sixto Ousmane II [facility] Start: 05-31-2021 Patient encounter procedure Sixto Mineral II [facility] Start: 05-21-2021 End: 05-21-2021 ambulatory Sixto Mineral II Other [facility] Other Start: 05-21-2021 Telephone encounter Sixto Romeo II [facility] Start: 05-09-2021 End: 05-09-2021 ambulatory Sixto Romeo II Other [facility] Other Start: 05-09-2021 FQHC visit new patient Sixto flores II [facility] Start: 04-09-2021 End: 04-09-2021 ambulatory Mp Olexa Other [facility] Other Start: 04-09-2021 Telephone encounter Mp Olexa [facility] Start: 04-03-2021 End: 04-03-2021 ambulatory Mp Olexa Other [facility] Other Start: 04-03-2021 Encounter for other preprocedural examination Mp Olexa [facility] Start: 04-03-2021 Office outpatient ne w 45 minutes Mp Olexa [facility] Start: 05-30-2020 End: 05-31-2020 ambulatory UNKNOWN PROVIDER Facility:[facility] Procedures Date Procedure Procedure Detail Performing Clinician Start: 08-07-2022 Plain X-ray of left wrist DO Jose Mccann Work Phone: Start: 06-10-[address] GUPTA IN [place] Comment on above: Performed By: #### P [facility] #### [facility] [address] [place] [address] Dr. Sydnie Reeves Immunizations Immunization Date Immunization Notes Care Provider Fa cilisindi 04-02-2021 COVID-19 [place] Olex a Other [facility] 07-22-2020 COVID-19 Iron [place] a Other [facility] 06-24-2020 COVID-19 [place] Olex a Other [facility] 04-28-2019 Influenza, injectabl e, Madin [place] Canine Kidney, preservative free, quadrivalent DO Jose Mccann Work Phone: [facility] Payers Date Payer Category Payer Unknown [id number] 1960 Unknown [id number] 1960 Unknown [id number] 2.16.84 [id number] 1960 Unknown [id number] 2.16.84 [id number] 1960 Unknown [id number] 2.16.84 [id number] 1960 Unknown [id number] 2.16.84 [id number] 1959 Private Health Insurance [facility] [id number] 1959 Private Health Insurance [facility] [id number] 1959 Self-pay Unknown [id number] [id number] Unknown [id number] [id number] [id number] Unknown O [id number] Unknown [id number] Social History Date Type Detail Facility Sex Assigned At [facility] Other Sex Assigned At Sex Assigned At Bir th [facility] Other Start: 06-18-2021 Tobacco smoking status NHIS Ex-smoker (finding) [facility] Start: 1960 Sex Assigned At Male F [facility] Medical Equipment Procedure Code Equipment Code Equipment Origin al Text Equipment Identifier Dates Arthroplasty, hip, total, anterior approach Acetabular shell [id number] FDA Start: 06-18-2021 Arthroplasty, hip, total, anterior approach Ceramic femoral head prosthesis ()[id number] FDA Start: 06-18-2021 Arthroplasty, hip, total, anterior approach Coated hip femur prosthesis, modular [id number] FDA Start: 06-18-2021 Arthroplasty, hip, total, anterior approach Non-constrained polyethylene acetabular liner ()[id number] FDA Start: 06-18-2021 Clinical Notes 04-03-2021 to 05-23-2023 Note Date & Type Note Facility 05-23-2023 Evaluation note Encounter Date Diagnosis Assessment Notes May, Pulmonary nodule (ICD-10 - R91.1) [facility] Other 05-13-2023 Evaluation note* Encounter Date Diagnosis Assessment Notes Treatment Notes Treatment Clinical Notes August, Bronchitis (ICD-10 - J40) Acute bronchitis material was printed Drink plenty fluids, get plenty of rest. Take the doxycycline and prednisone as prescribed until gone. Use the albuterol inhaler as prescribed as needed for cough or shortness of breath. Continue take your asyk-cla-lbgwdci cough medicine. Follow-up with your family physician if no improvement in 2 to 3-day [facility] Other 04-26-2023 Evaluation note* Encounter Date Diagnosis Assessment Notes Treatment Notes Treatment Clinical Notes Jul, Left wrist pain (ICD-10 - M25.532) Jul, Sprain of left wrist, initial encounter (ICD-10 - S63.502A) Wrist sprain home care material was printed Drink plenty fluids, get plenty of rest. Continue home medications as prescribed. Wear the wrist splint for comfort and compression. Take Tylenol or Motrin as needed for aches and pains and swelling. Ice and elevate your wrist 2-3 times a day. Follow-up with your family physician if no improvement in 5 to 7 days [facility] Other 03-14-2023 Evaluation note* Encounter Date Diagnosis Assessment Notes Treatment Notes Treatment Clinical Notes Jun, Scrotal mass (ICD-10 - N50.89) Ill defined right scrotal mass. Recommend US to assist in ID Jun, Polyuria (ICD-10 - R35.89) Likely unrelated to scrotal mass. BPH, monitor for now [facility] Other 02-06-2023 Evaluation note* Encounter Date Diagnosis Assessment Notes Treatment Notes Treatment Clinical Notes May, Wellness examination (ICD-10 - Z00.00) Healthy diet and exercise. Reviewed age-appropriate preventive testing recommended. May, Hypertension (ICD-10 - I10) This patient is instructed to consume a healthy, low-fat, low-salt diet. They are also encouraged to continue exercise to achieve/maintain a normal BMI. May, Hypercholesterolemia (ICD-10 - E78.00) Diet and exercise with continued statin therapy. May, KINGSTON (obstructive sle ep apnea) (ICD-10 - G47.33) This patient is aware of the benefits associated with KINGSTON: With continued use, the patient reduces the risk for [place], CVA, HTN, cardiac dysrhythmias and sudden cardiac deaths.The patient is also aware of the association between KINGSTON and morning headaches, daytime somnolence, fatigue and obesity, which also has been improved with continued use.The patient is compliant with treatment, wearing the equipment every night for greater than 4 hours.The patient is instructed to continue use of the CPAP for KINGSTON treatment. May, Cigarette nicotine dependence in remission (ICD-10 - F17.211) May, Pulmonary nodule (IC D-10 - R91.1) This will be [address]. If nodule unchanged, would not require further scanning May, Screening PSA (prost ate specific antigen) (ICD-10 - Z12.5) Yearly PSA and TODD May, Hx of gout (ICD-10 - Z87.39) [facility] Other 02-04-2023 Evaluation note* Encounter Date Diagnosis Assessment Notes Treatment Notes Treatment Clinical Notes May, Pulmonary nodule (ICD-10 - R91.1) Left sided 5mm apical nodule, 6.2mm basilar nodule (initially noted on CT abd 05/2020) May, Wellness examination (ICD-10 - Z00.00) [facility] Other 06-01-2022 Evaluation note* Encounter Date Diagnosis Assessment Notes Treatment Notes Treatment Clinical Notes Sep, Arthritis of left hip (ICD-10 - M16.12) Sep, KINGSTON (obstructive sleep apnea) (ICD-10 - G47.33) Sep, History of total left hip arthroplasty (ICD-10 - Z96.642) Sep, Other [facility] [place] [facility] on 06/18/2021 Doing well Discussed post-op dental prophylaxis. Shared decision made to continue prophylactic antibiotics indefinitely. Follow-up at 1 year post-op for repeat examination and repeat x-rays. Patient instructed to call with any questions or concerns. [facility] Other 05-04-2022 Evaluation note* Encounter Date Diagnosis Assessment Notes Treatment Notes Treatment Clinical Notes August, Arthritis of left hip (ICD-10 - M16.12) August, KINGSTON (obstructive sleep apnea) (ICD-10 - G47.33) August, History of total left hip arthroplasty (ICD-10 - Z96.642) August, Other Overall I think he is doing great and the wound is continuing to heal. I explained to him that I would expect that scab to fall off on its ready. He can continue regular showering and cleaning of the wound as he sees necessary. Continue all activities as tolerated. I will plan to see him back in 4 weeks for his 3-month x-rays. If he is doing well at that time then we will have him come back yearly. [facility] Other 04-20-2022 Evaluation note* Encounter Date Diagnosis Assessment Notes Treatment Notes Treatment Clinical Notes Jul, Arthritis of left hip (ICD-10 - M16.12) Jul, KINGSTON (obstructive sleep apnea) (ICD-10 - G47.33) Jul, History of total left hip arthroplasty (ICD-10 - Z96.642) Jul, Other [facility] [place] [facility] on 06/18/2021 Doing well In regards to the incision area, I recommended that he keep it clean and dry. We also prescribed him 1 week of Duricef. I will plan to see him back in 2 weeks for a wound recheck. No x-rays at that time. Patient may continue increasing activities as tolerated. Continue taking hdlk-zkr-zhdesrl anti-inflammatorie s as needed for assistance with swelling and pain associated with the operative extremity. [facility] Other 03-21-2022 Evaluation note* Encounter Date Diagnosis Assessment Notes Treatment Notes Treatment Clinical Notes Jun, Arthritis of left hi p (ICD-10 - M16.12) Jun, KINGSTON (obstructive sleep apnea) (ICD-10 - G47.33) Jun, Other specified postprocedural states (ICD-10 - Z98.890) Wound vac was removed, patient tolerated this well. No evidence of infection. Zip line left intact. An ABD was applied over zip line. Patient instructed to follow up with Dr. Romeo as scheduled in 2 days. Call our office with any concerns or questions. [facility] Other 03-10-2022 Evaluation note* Encounter Date Diagnosis Assessment Notes Treatment Notes Treatment Clinical Notes Jun, Arthritis of left hi p (ICD-10 - M16.12) Jun, KINGSTON (obstructive sleep apnea) (ICD-10 - G47.33) Jun, Other specified postprocedural states (ICD-10 - Z98.890) . Overall patient is doing very well. He is only using Tylenol for pain. He still using his walker. I explained to him about caring for his Prevena wound VAC and showering. He feels better now that he knows his wound VAC is working appropriately. We will plan to see him in the office on 07/02 with Shannon, our nurse practitioner. This will be 14 days out from his surgery. Normally I would have [facility] home health physical therapy take the Prevena wound VAC off and then I would see him in the office later that week to look at his Zipline. Since he is using an outside home health physical therapy company, I would feel more comfortable with our staff here removing the Prevena wound VAC pump. Patient is in agreement and will plan to come in on 07/02 to see Dex for Prevena wound VAC removal. I will then also see him as regularly scheduled on 07/04. [facility] Other 03-04-2022 Evaluation note* Encounter Date Diagnosis Assessment Notes Treatment Notes Treatment Clinical Notes Jun, Other Prolonged Services 1. H and P date: 06/06/2021 2. Diagnosis: Left hip primary osteoarthritis 3. Counseling: Counseling education was provided to the patient on the date of his HP. 4. Coordination of care: The patient was discussed at today's total joints meeting with anesthesia, OR staff, and implant reps in an effort to coordinate the patient's care during the perioperative period. The anesthesiologist was involved in discussions regarding the patient's pain management such as regional blocks, anesthesia plans the day of surgery such as general versus spinal, as well as a final review of lab work to ensure the patient could proceed with surgery safely. The manager of human resources was vital for surgery timing and scheduling purposes. The implant rep was also available for necessary discussions regarding preoperative templates that were created on preoperative x-rays to ensure the appropriate implants and sizes of implants would be available the day of surgery. The patient's discharge plan was also discussed and the final decision was confirmed. 5. Medication Changes: No medication changes were deemed necessary 6. Lab Tests: The patient's screening tests including albumin levels, vitamin D levels, hemoglobin, hemoglobin A1c, cotinine serum level, and MRSA nasal cultures were all reviewed to ensure appropriate perioperative care can be performed. A recheck of the patient's vitamin D demonstrated that this improved based on his preoperative supplementation. This included selection of perioperative antibiotics, surgical dressing, and any contact precautions that may need to be enacted. The patient's presurgical testing lab work was also reviewed. This included a CBC, BMP, UA, fructosamine, and a blood type and screen. This lab work was discussed with anesthesia during today's total joints meeting to ensure the patient could proceed with surgery safely. Based on the patient's presurgical testing EKG there was changes and a cardiology clearance was then recommended prior to surgical clearance. Patient had an appointment scheduled on 06/12/2021. This will be reviewed later today and forwarded over to the anesthesia department. 7. Review of reports/records: The surgical clearance information provided by the patient's PCP and if deemed necessary, other specialists, was reviewed. Patient's primary care provider, Dr. Mccann provided surgical clearance on 05/28/2021. Any recommendations made by these care providers were taken into consideration for the patient's perioperative and postoperative treatment plans. Prolonged services time spent: 33 minutes [facility] Other 02-17-2022 Evaluation note* Encounter Date Diagnosis Assessment Notes Treatment Notes Treatment Clinical Notes May, Arthritis of left hip (ICD-10 - M16.12) May, Pre-op examination (ICD-10 - Z01.818) May, KINGSTON (obstructive sleep apnea) (ICD-10 - G47.33) May, Other 1. Left [place] As result of his vitamin D levels coming back at 20.0 we did discuss that he is at a slightly increased risk of infection. However, he did start his 50,000 international units 2 weeks ago. At this time he would still like to proceed with surgery. Home Medications - DVT prophylaxis: Aspirin - NSAID: Celebrex - Disposition: Same-day discharge-patient lives at home with his and his 2 sons. He says that he recently remodeled the home so it is handicapped accessible throughout. Joints Meeting Checklist - Pharmacy: [facility] to bed - Approach/Technique: Anterior, [place] table - Implants: Avenir Complete; G7 - Anesthesia: General - Blocks: Fascia iliaca - Preop Antibiotics: Ancef - TXA: Yes-systemic - Positioning/OR Bed: Supine on [place] bed - Intraop X-ray: Yes - Lopez: No - Tourniquet: No - Antibiotic powder: Yes 2 g of Vanco - Antibiotic cement: No - Dressing: Zipline with 14-day Prevena in room The patient has tried and failed all conservative treatment options to include: activity modification, physical therapy, oral anti-inflammatories, and intra-articular steroid injections. We will move forward with the definitive treatment option and schedule the patient for the above mentioned procedure. The risks and benefits of the surgery were reviewed in depth with the patient, and all questions were answered. Informed consent was obtained. The risks and potential complications of the surgery include, but are not limited to: avascular necrosis, nonunion, nerve injury, blood vessel injury, excessive bleeding, blood transfusion, infection, persistent pain, loss of fixation, failure of the implant, deep vein thrombosis, pulmonary embolus, loss of limb, fracture, leg length discrepancy, and . Patient voiced understanding of these risks and has elected to proceed with the above surgery. [facility] Other 01-26-2022 Evaluation note* Encounter Date Diagnosis Assessment Notes Treatment Notes Treatment Clinical Notes Apr, Left hip pain (ICD-10 - M25.552) Apr, Arthritis of left hip (ICD-10 - M16.12) Patient has failed conservative treatment and decided to proceed with total hip arthroplasty. Pre-op work-up completed. The risks, benefits, alternatives, and complications of the procedure have been fully explained to the patient. Patient understands and agrees to proceed. List of patient's current medications was reviewed. Patient has been instructed to stop taking Aspirin and NSAID products. Medications to be taken the morning of surgery have also been discussed. All the questions that the patient had have been answered to the patient's satisfaction. Consent signed and all paperwork handled. Apr, Age-related osteoporosis without current pathological fracture (ICD-10 - M81.0) Apr, Other post anesthesia room nurse (current) drug therapy (ICD-10 - Z79.899) Apr, KINGSTON (obstructive sleep apnea) (ICD-10 - G47.33) Apr, Other 1. Left [place] - DVT prophylaxis: Aspirin - Antibiotics: Ancef - NSAID: Celebrex - Implants: Avenir Complete, G7 - Disposition: Same-day discharge. Patient lives at home with his . He reports remodeling the home recently and it is now handicapped accessible . 2. Preop screening labs will be ordered including: - hemoglobin - serum albumin - 25-OH Vit D - HgbA1c - serum cotinine - MRSA nasal culture 3. Patient will obtain preop clearances including: -PCP, Dr. Mccann 4. Once our office has reviewed the above labs and clearances, we will contact the patient to discuss surgery scheduling. Patient is in agreement with the above plan. 5. The risks involved with surgery and postoperative complications were discussed in relation to the patient's nonmodifiable risk factors including but not limited to the following: Hypertension All questions were answered after discussing these increased risks. The patient voiced understanding of these increased risks and still wishes to proceed with surgery. 6. The risks involved with surgery and postoperative complications were discussed in relation to the patient's modifiable risk factors including but not limited to the following: BMI 36 Alcohol abuse All questions were answered after discussing these increased risks. The patient voiced understanding of these increased risks and still wishes to proceed with surgery. The patient has tried and failed all conservative treatment options to include: oral anti-inflammatorie s, intra-articular steroid injections, physical therapy, and assistive devices. We will move forward with the definitive treatment option and schedule the patient for the above mentioned procedure after we have reviewed screening labs and clearances. Patient understands abnormal screening labs or absent clearances could delay their surgery. [facility] Other 12-28-2021 History general Narrative - Reported* Type Description Date Medical History high blood pressure Medical History KINGSTON Surgical History exploratory pins in back and pe lvis Surgical History total right hip Surgical History left carpal tunnel release 03/15 12/02 Surgical History BILAT GREAT TOE SURGERY [facility] Other 12-21-2021 Evaluation note* Encounter Date Diagnosis Assessment Notes Treatment Notes Treatment Clinical Notes Mar, Left carpal tunnel syndrome (ICD-10 - G56.02) We will plan on carpal tunnel release.The patient has stated that they do not want to live in this condition any longer and would like to proceed with surgery. I feel that this is a reasonable option at this point and we may be able to improve function and decrease pain and numbness. We have discussed the process and procedure in detail including not eating or drinking 8 hrs prior to surgery, the need for anesthesia and associated respiratory, cardiac, and patient position complications (such as nerve traction and compression). We discussed that incisional pain and continued neurologic symptoms can persist for months after surgery. The complications of infection, persistent symptoms, sensory and motor nerve injury are well known problems that can require repeat surgeries. Patient is fully aware that this wrist may never be the same. We discussed that our team will do everything we can to help achieve the best outcome. Mar, Pre-op examination (ICD-10 - Z01.818) [facility] Other Evaluation noteNort[employer] Other Evaluation noteNo InformationNort [employer] Other Evaluation noteNo assessment information available [facility] Work Phone: Hispsoo general Narrative - ReportedN[facility] [employer] Other Hisvttz general Narrative - Reported* Type Description Date Medical History high blood pressure Surgical History exploratory pins in back and pe lvis Surgical History total right hip [facility] Other [facility] general Narrative - Reported* Type Description Date Medical History Hypertension Medical History Hypercholesterolemia Medical History KINGSTON (obstructive sleep apnea) Medical History Pulmonary nodule Medical History Nicotine dependence in remission Surgical History exploratory pins in back and pe lvis Surgical History total right hip Surgical History left carpal tunnel release 03/15 12/02 Surgical History BILAT GREAT TOE SURGERY Hospitalization History SEE SURGICAL HX [facility] Other Hisizzq general Narrative - Reported* Type Description Date Medical History Hypertension Medical History Hypercholesterolemia Medical History KINGSTON (obstructive sleep apnea) Medical History Pulmonary nodule Medical History Nicotine dependence in remission Surgical History exploratory pins in back and pe lvis Surgical History total right hip Surgical History left carpal tunnel release 03/15 12/02 Surgical History BILAT GREAT TOE SURGERY Surgical History TOTAL LEFT HIP Hospitalization History SEE SURGICAL HX [facility] Other Summary Purpose Family History Relationship Condition Age at Onset Recorded Date/T nadeen father End-stage renal disease Unknown Not Specified Dementia Unknown Advance Directives Advance Directive Response Recorded Date/ Time Advance Directives Yes April 27, 2019 9:43am Additional Source Comments (unrecognized sect ion and content) No Status Records FoundNo Status Records FoundNo Status Records FoundNo Status Records Found INFORMATION SOURCE (unrecogn ized section and content) DATE CREATED AUTHOR 05/21/2019 [facility] DATE CREATED AUTHOR AUTHOR'S ORGANIZ ATION 05/30/2021 [facility] DATE CREATED AUTHOR AUTHOR'S ORGANIZ ATION 08/08/2022 [facility] DATE CREATED AUTHOR AUTHOR'S ORGANIZ ATION 08/22/2022 [facility] REASON FOR VISIT (unrecogniz ed section and content) Left Carpal TunnelLeft Hip P ainNo InformationHHVitamin DHistory & Physicalwound vac issueWound Vac RemovalRecheck LTHAWound RecheckRecheck LTHANo InformationWELLNESS MBLab Resultsbump on testiclesTHINK LEFT HAND-WRIST BROKELab Resultsnasal and chest cold X [address] chest Care Teams (unrecognized sec tion and content) Team Status: Active Member Role Status Dates Jose Mccann , Primary Care Provider Active Team Status: Inactive Member Role Status Dates Jose Mccann , Primary Care Provider Active AARTI Steinberg Attending Provider Active Goals (unrecognized section and content) Goals may be documented in a n alternate section FOR RECORDS PERTAINING TO PATIENTS WHO ARE OR HAVE BEEN ENROLLED IN A CHEMICAL DEPENDENCY/SUBSTANCEABUSE PROGRAM, SOME INFORMATION MAY BE OMITTED. This clinical summary was aggregated from multiple sources. Caution should be exercised in using it in the provision of clinical care. This summary normalizes information from multiple sources, and as a consequence, information in this document may materially change the coding, format and clinical context of patient data. In addition, data may be omitted in some cases. CLINICAL DECISIONS SHOULD BE BASED ON THE PRIMARY CLINICAL RECORDS. [facility]. provides no warranty or guarantee of the accuracy or completeness of information in this document.
[2023-06-09 09:32] LABS: Basophils Percent Auto 0.7 % (0.2-2.0); Eosinophils Absolute Auto 0.1 10^3/uL (0.0-0.7); Eosinophils Percent Auto 2.1 % (0.9-7.0); Hematocrit 47.7 % (42.0-54.0); Hemoglobin 15.7 g/dL (14.0-18.0); Immature Granulocytes Abs Auto 0.03 10^3/uL (0.00-0.03); Immature Granulocytes Pct Auto 0.7 % (0.0-0.5); Lymphocytes Absolute Auto 0.8 10^3/uL (1.2-3.8); Lymphocytes Percent Auto 19.8 % (20.5-60.0); Mean Corpuscular HGB Conc 32.9 g/dL (29.9-35.2); Mean Corpuscular Hemoglobin 30.4 pg (25.9-34.0); Mean Corpuscular Volume 92.4 fL (80.0-94.0); Mean Platelet Volume 10.7 fL (9.5-13.5); Monocytes Absolute Auto 0.5 10^3/uL (0.3-0.8); Monocytes Percent Auto 11.1 % (1.7-12.0); Neutrophils Absolute Auto 2.8 10^3/uL (1.4-6.5); Neutrophils Percent Auto 65.6 % (43.0-75.0); Platelet Count 213 10^3/uL (150-450); Red Blood Count 5.16 10^6/uL (4.70-6.10); Red Cell Distribution Width 12.8 % (11.0-15.0); White Blood Count 4.2 10^3/uL (4.0-11.0)
[2023-06-09 09:45] LABS: Alanine Aminotransferase 40 U/L (16-63); Albumin Globulin Ratio 0.9; Albumin Level 3.5 g/dL (3.4-5.0); Alkaline Phosphatase 79 U/L (46-116); Anion Gap 12.2; Aspartate Amino Transferase 22 U/L (15-37); BUN Creatinine Ratio 13.6; Calcium 9.3 mg/dL (8.5-10.1); Chloride 103 mmol/L (98-107); Chol HDL Ratio 1.7; Cholesterol 173 mg/dL (<=200); Estimated GFR (African America >60 (>=60); Estimated GFR (Non-African Ame >60 (>=60); Globulin 3.9 g/dL; Glucose 119 mg/dL (74-106); HDL Cholesterol 99 mg/dL (40-60); Potassium 4.2 mmol/L (3.5-5.1); Sodium 139 mmol/L (136-145); Total Protein 7.4 g/dL (6.4-8.2); Triglycerides 144 mg/dL (<=150); VLDL CHOLESTEROL 28.8 mg/dL
[2023-06-09 10:32] LABS: Prostate Specific Antigen Scrn 1.19 ng/mL (<=4.00)
== END 2023-06-09 09:03 | disposition home or self-care (01) ==
LOC: LAB 09:06
PROVIDERS: PCP Internal Medicine; Visit Provider Internal Medicine
DX: Z00.00 Encounter for general adult medical examination without abnormal findings (principal)
CPT/HCPCS: 36415; 80053; 80061; 85025; G0103

== ENCOUNTER 2023-06-20 09:48 | Outpatient (OUT) | payer OTHER, SELFPAY ==
--- OUTSIDE RECORDS SUMMARY | 2023-06-20 09:56 | XMS_ITS | CCD ---
Author Name Unknown Address [address] [place] [address] Organization [facility] Care Team Providers Care Clinical Pharmacy Manager Name Role Phone PROVIDER, UNKNOWN Attending Unavailable PROVIDER, UNKNOWN Admitting Unavailable JH OGLESBY Referring Unavailable Mp Jaquez Unavailable Sixto Romeo II Unavailable [phone] Cindy Reed Unavailable Jose Mccann Unavailable Jeniffer Bañuelos Unavailable Sixto Romeo II Admitting UnavailSixto Jain II Attending Unavailabl e Jose Mccann Primary Care Unavailable Jeniffer Bañuelos Admitting Unavailable Jeniffer Bañuelos Attending Unavailable Jose Mccann Primary Care Unavailable DO Jose Mccann Primary Care Provider AARTI Bañuelos Attending Provider [phone] RAMY, DR CHIN Admitting Unavailable BALL, DR [...] tablet (1 source) Opioid Agonist Start: 04-09-2021 [id number] actuat albuterol 0.09 mg/actuat metered dose [...] Start: 05-31-2021 take 1 capsule by [facility] every twelve hours Cefadroxil 500 MG 1 [...] Active docusate sodium 50 mg / sennosides, fdc 8.6 mg oral tablet (4 sources) Start: [...] Start: 05-21-2021 take 1 capsule by [facility] every week Ergocalciferol 1.25 MG (38856 UT) 1 capsule Orally Once a week [...] for 90 Active take 1 tablet by andriena th every twenty-four hours Metoprolol Succinate ER [...] DISCHARGE 06/25/2021 May, Active polyethylene glycol 3350 05747 mg powder for oral solution (4 sources) [...] Date Episodic/Chronic Other aftercare (1 source) Other exterminator helper termite (current) drug therapy Onset: 05-09-2021 Resolved: 05-09-2021 Episodic Other non-traumatic joint disorders (1 source) Pain in left hip Onset: 05-09-2021 Resolved: 05-09-2021 Episodic Residual codes; unclassified (3 sources) Other specified postprocedural states Onset: 04-09-2021 Resolved: 07-02-2021 Episodic Unclassified (1 source) Polyuria R35.89 Results Test Name Value Interpretation Reference Range Facility GLYCOHEMOGLOBIN A1Con 2022 ADA RECOMMENDATION SEE BELOW Normal [facility] Comment on above: Result Comment: ADA RECOMMENDED LIMIT 4.0 - 6.0 ADA THERAPEUTIC TARGET < 7.0 ACTION SUGGESTED > 7.0 Performed By: #### D ATA1C #### [facility] [address] [place], [place] [address] Dr. Sydnie Reeves Glucose [Mass/Vol] 120 mg/dL Normal [facility] Comment on above: Performed By: #### D ATA1C #### [facility] [address] [place], [place] [address] Dr. Sydnie Reeves HbA1c (Bld) [Mass fraction] 5.8 % Normal 4.5-6.2 [facility] Comment on above: Performed By: #### D ATA1C #### [facility] [address] [place], [place] [address] Dr. Sydnie Reeves XR wrist LT min 3V*on 2022 XR wrist LT min 3V* [facility] [employer] Other XR wrist LT min 3V* [facility] Other XR wrist LT min 3V* [address] [place] [address] [facility] Other XR wrist LT min 3V* [place] [address] [facility] Other XR wrist LT min 3V* XRay Report [facility] [employer] Other XR wrist LT min 3V* Signed [facility] Other XR wrist LT min 3V* Patient: Lynette Santamaria MR#: [id number] [place] [employer] Other XR wrist LT min 3V* 2 [facility] Other XR wrist LT min 3V* : 1960 Acct:[id number] [employer] Other XR wrist LT min 3V* Age/Sex: 62 / M ADM Date: 08/07/22 [facility] Other XR wrist LT min 3V* Loc: XDUCLY Room: Type: [facility] CLI [facility] [employer] Other XR wrist LT min 3V* Attending Dr: Jeniffer BROUSSARD [employer] Other XR wrist LT min 3V* Copies to: AARTI Escobar [employer] Other XR wrist LT min 3V* Ordering Provider: AARTI Escobar [facility] [employer] Other XR wrist LT min 3V* Date of Service: 08/07/22 [facility] Other XR wrist LT min 3V* XR/XR wrist LT min 3V*: Left wrist pain [facility] [employer] Other XR wrist LT min 3V* 4 views of the LEFT wrist plain film [employer] Other XR wrist LT min 3V* COMPARISON: None [employer] Other XR wrist LT min 3V* HISTORY: LEFT wrist injury. Ulnar-sided pain and swelling. [facility] [employer] Other XR wrist LT min 3V* Acute findings: None corticated bony density near the distal radius likely represents benign [facility] [employer] Other XR wrist LT min 3V* finding. [facility] [employer] Other XR wrist LT min 3V* Degenerative change: Moderate 1st carpometacarpal degenerative change present. Mild prominence of [employer] Other XR wrist LT min 3V* the scapholunate interspace identified. 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 [employer] Other XR wrist LT min 3V* Soft tissue findings : Mild chondrocalcinosis of the triangular fibrocartilage present. [facility] Other XR wrist LT min 3V* Joint effusion: None [facility] Other XR wrist LT min 3V* Postop changes: None [facility] Other XR wrist LT min 3V* XR/XR wrist LT min 3V* [employer] Other XR wrist LT min 3V* IMPRESSION: No acute bony findings. [facility] Other XR wrist LT min 3V* Impression dictated by: Oz Clancy M.D.08/07/2022 10:08 AM [employer] Other XR wrist LT min 3V* Dictation Location: [place] [address] [facility] Other XR wrist LT min 3V* Transcribed By: PWS 08/07/22 1008 [facility] Other XR wrist LT min 3V* Dictated By: Oz Clancy DO 08/07/22 1005 [facility] Other XR wrist LT min 3V* Signed By: [facility] Other XR wrist LT min 3V* 08/07/22 1008 No rt [employer] Other XR wrist LT min 3V* [facility] Main [place] [address] [place] [address] XRay Report Signed Patient: Lynette Santamaria MR#: [id number] 2 : 1960 Acct:[id number] Age/Sex: 62 / M ADM Date: 08/07/22 Loc: [facility] Room: Type: [facility] Attending Dr: Jeniffer BROUSSARD Copies to: AARTI [...] Oz Clancy M.D.08/07/2022 10:08 AM Dictation Location: [place] [address] Transcribed By: [facility] 08/07/22 1008 Dictated By: Oz Clancy DO 08/07/22 1005 Signed By: 08/07/22 1008 [facility] US SCROTUMon 07-11-2022 US SCROTUM EXAMINATION: [...] HEDY JOINER Date: 2022-07-11 07:55 Normal The [facility] CBC AUTO DIFFon 06-10-2022 BASO # 0.0 103/ul Normal 0.0-0.1 [facility] Comment on above: Performed By: #### C BC #### [facility] [address] [place] [address] Dr. Sydnie Reeves Basophils/100 WBC (Bld) 0.4 % Normal 0.2-2.0 [facility] Comment on above: Performed By: #### C BC #### [facility] [address] [place] [address] Dr. Sydnie Reeves EO # 0.2 103/ul Normal 0.0-0.7 [facility] Comment on above: Performed By: #### C BC #### [facility] [address] [place] [address] Dr. Sydnie Reeves Eosinophils/100 WBC (Bld) 3.3 % Normal 0.9-7.0 [facility] Comment on above: Performed By: #### C BC #### [facility] [address] [place] [address] Dr. Sydnie Reeves Erythrocyte distribution width (RBC) [Ratio] 13.1 % Normal 11.0-15.0 [facility] Comment on above: Performed By: #### C BC #### [facility] [address] [place] [address] Dr. Sydnie Reeves Hematocrit (Bld) [Volume fraction] 44.0 % Normal 42.0-54.0 [facility] Comment on above: Performed By: #### C BC #### [facility] [address] [place] [address] Dr. Sydnie Reeves Hemoglobin (Bld) [Mass/Vol] 15.1 g/dL Normal 14.0-18.0 [facility] Comment on above: Performed By: #### C BC #### [facility] [address] [place] [address] Dr. Sydnie Reeves IG # 0.03 10e3/ul Normal 0.00-0.03 [facility] Comment on above: Performed By: #### C BC #### [facility] [address] [place] [address] Dr. Sydnie Reeves IG % 0.7 % Critically high 0.0-0.5 [facility] Comment on above: Performed By: #### C BC #### [facility] [address] [place] [address] Dr. Sydnie Reeves LYMPH # 1.2 103/ul Normal 1.2-3.8 [facility] Comment on above: Performed By: #### C BC #### [facility] [address] [place] [address] Dr. Sydnie Reeves Lymphocytes/100 WBC (Bld) 24.9 % Normal 20.5-60.0 [facility] Comment on above: Performed By: #### C BC #### [facility] [address] [place] [address] Dr. Sydnie Reeves MANUAL DIFF REQ NO Normal [facility] Comment on above: Performed By: #### C BC #### [facility] [address] [place] [address] Dr. Sydnie Reeves MCH (RBC) [Entitic mass] 30.4 pg Normal 25.9-34.0 [facility] Comment on above: Performed By: #### C BC #### [facility] [address] [place] [address] Dr. Sydnie Reeves MCHC (RBC) [Mass/Vol] 34.3 g/dL Normal 29.9-35.2 [facility] Comment on above: Performed By: #### C BC #### [facility] [address] [place] [address] Dr. Sydnie Reeves MCV (RBC) [Entitic vol] 88.7 fL Normal 80.0-94.0 [facility] Comment on above: Performed By: #### C BC #### [facility] [address] [place] [address] Dr. Sydnie Reeves MONO # 0.5 103/ul Normal 0.3-0.8 [facility] Comment on above: Performed By: #### C BC #### [facility] [address] [place] [address] Dr. Sydnie Reeves Monocytes/100 WBC (Bld) 10.2 % Normal 1.7-12.0 [facility] Comment on above: Performed By: #### C BC #### [facility] [address] [place] [address] Dr. Sydnie Reeves NEUT # 2.8 103/ul Normal 1.4-6.5 [facility] Comment on above: Performed By: #### C BC #### [facility] [address] [place] [address] Dr. Sydnie Reeves Neutrophils/100 WBC (Bld) 60.5 % Normal 43.0-75.0 [facility] Comment on above: Performed By: #### C BC #### [facility] [address] [place] [address] [address] Sydnie Reeves Platelet mean volume (Bld) [Entitic vol] 10.5 fL Normal 9.5-13.5 [facility] Comment on above: Performed By: #### C BC #### [facility] [address] [place] [address] [address] Sydnie Reeves PLT 202 103/ul Normal 150-450 [facility] Comment on above: Performed By: #### C BC #### [facility] [address] [place] [address] [address] Sydnie Reeves RBC 4.96 106/ul Normal 4.70-6.10 [facility] Comment on above: Performed By: #### C BC #### [facility] [address] [place] [address] [address] Sydnie Reeves WBC 4.6 103/ul Normal 4.0-11.0 [facility] Comment on above: Performed By: #### C BC #### [facility] [address] [place] [address] [address] Sydnie Reeves Complete Blood Count and Dif julio 06-10-2022 Anisocytosis Ql (Bld) [facility] [employer] Other Basophilic stippling LM Ql (Bld) [facility] [employer] Other RBC morphology finding Nom (Bld) [facility] [employer] Other Comprehensive Metabolic Pane pablo 06-10-2022 Comprehensive Metabolic Panel [facility] [employer] Other LIPID PROFILEon 06-10-2022 CHOL-HDL RATIO NORM SEE BELOW Normal [facility] Comment on above: Result Comment: 3.3 - 4.4 LOW RISK 4.4 - 7.1 AVERAGE RISK 7.1 - 11.0 MODERATE RISK >11.0 HIGH RISK Performed By: #### C MP, LIPID #### [facility] [address] [place] [address] [address] Sydnie Reeves Cholesterol [Mass/Vol] 172 mg/dL Normal <=200 [facility] Comment on above: Performed By: #### C MP, LIPID #### [facility] [address] [place] [address] [address] Sydnie Reeves Cholesterol in HDL [Mass/Vol] 71 mg/dL Critically high 40-60 [facility] Comment on above: Performed By: #### C MP, LIPID #### [facility] [address] [place] [address] [address] Sydnie Reeves Cholesterol in LDL [Mass/Vol] 62.2 mg/dL Normal [facility] Comment on above: Performed By: #### C MP, LIPID #### [facility] [address] [place] [address] [address] Sydnie Reeves Cholesterol.total/C holesterol in HDL [Mass ratio] 2.4 {ratio} Normal [facility] Comment on above: Performed By: #### C MP, LIPID #### [facility] [address] [place] [address] [address] Sydnie Reeves HDL NORMAL > or = 60 mg/dl - LO W CARDIOVASCULAR RISK <40 mg/dl - HIGH CARDIOVASCULAR RISK Normal [facility] Comment on above: Performed By: #### C MP, LIPID #### [facility] [address] [place] [address] [address] Sydnie Reeves LDL CALC NORMAL SEE BELOW Normal [facility] Comment on above: Result Comment: <100 mg/dl OPTIMAL 100 - 129 mg/dl NEAR OR ABOVE OPTIMAL 130 - 159 mg/dl BORDERLINE HIGH 160 - 189 mg/dl HIGH >190 mg/dl VERY HIGH Performed By: #### C MP, LIPID #### [facility] [address] [place] [address] [address] Sydnie Reeves Triglyceride [Mass/Vol] 194 mg/dL Critically high <=150 [facility] Comment on above: Performed By: #### C MP, LIPID #### [facility] [address] [place] [address] [address] Sydnie Reeves VLDL CALC 38.8 mg/dL Normal [facility] Comment on above: Performed By: #### C MP, LIPID #### [facility] [address] [place] [address] [address] Sydnie Reeves PROF 14(COMP METB)on 023 Albumin [Mass/Vol] 3.8 g/dL Normal 3.4-5.0 [facility] Comment on above: Performed By: #### C MP, LIPID #### [facility] [address] [place] [address] [address] Sydnie Reevse Albumin/Globulin [Mass ratio] 1.2 {ratio} Normal [facility] Comment on above: Performed By: #### C MP, LIPID #### [facility] [address] [place] [address] [address] Sydnie Reeves ALP [Catalytic activity/Vol] 102 U/L Normal 46-116 [facility] Comment on above: Performed By: #### C MP, LIPID #### [facility] [address] [place] [address] [address] Sydnie Reeves ALT [Catalytic activity/Vol] 39 U/L Normal 16-63 [facility] Comment on above: Performed By: #### C MP, LIPID #### [facility] [address] [place] [address] [address] Sydnie Reeves Anion gap [Moles/Vol] 10.7 mmol/L Normal [facility] Comment on above: Performed By: #### C MP, LIPID #### [facility] [address] [place] [address] [address] Sydnie Reeves AST [Catalytic activity/Vol] 23 U/L Normal 15-37 [facility] Comment on above: Performed By: #### C MP, LIPID #### [facility] [address] [place] [address] [address] Sydnie Reeves Bilirubin [Mass/Vol] 0.7 mg/dL Normal 0.2-1.0 [facility] Comment on above: Performed By: #### C MP, LIPID #### [facility] [address] [place] [address] [address] Sydnie Reeves Calcium [Mass/Vol] 9.7 mg/dL Normal 8.5-10.1 [facility] Comment on above: Performed By: #### C MP, LIPID #### [facility] [address] [place] [address] [address] Sydnie Reeves Chloride [Moles/Vol] 100 mmol/L Normal 98-107 [facility] Comment on above: Performed By: #### C MP, LIPID #### [facility] [address] [place] [address] Dr. Sydnie Reeves CO2 [Moles/Vol] 30.4 mmol/L Normal 21.0-32.0 [facility] Comment on above: Performed By: #### C MP, LIPID #### [facility] [address] [place] [address] Dr. Sydnie Reeves Creatinine [Mass/Vol] 0.84 mg/dL Normal 0.70-1.30 [facility] Comment on above: Performed By: #### C MP, LIPID #### [facility] [address] [place] [address] Dr. Sydnie Reeves EGFR-AF NIGERIAN >60 Normal >=60 [facility] Comment on above: Performed By: #### C MP, LIPID #### [facility] [address] [place] [address] Dr. Sydnie Reeves EGFR-NON AF NIGERIAN >60 Normal >=60 [facility] Comment on above: Performed By: #### C MP, LIPID #### [facility] [address] [place] [address] Dr. Sydnie Reeves Globulin (S) [Mass/Vol] 3.3 g/dL Normal [facility] Comment on above: Performed By: #### C MP, LIPID #### [facility] [address] [place] [address] Dr. Sydnie Reeves Glucose [Mass/Vol] 125 mg/dL Critically high 74-106 [facility] Comment on above: Performed By: #### C MP, LIPID #### [facility] [address] [place] [address] Dr. Sydnie Reeves Potassium [Moles/Vol] 4.1 mmol/L Normal 3.5-5.1 [facility] Comment on above: Performed By: #### C MP, LIPID #### [facility] [address] [place] [address] Dr. Sydnie Reeves Protein [Mass/Vol] 7.1 g/dL Normal 6.4-8.2 [facility] Comment on above: Performed By: #### C MP, LIPID #### [facility] [address] [place] [address] [address] Sydnie Reeves Sodium [Moles/Vol] 137 mmol/L Normal 136-145 [facility] Comment on above: Performed By: #### C MP, LIPID #### [facility] [address] [place] [address] [address] Sydnie Reeves Urea nitrogen [Mass/Vol] 9.0 mg/dL Normal 7.0-18.0 [facility] Comment on above: Performed By: #### C MP, LIPID #### [facility] [address] [place] [address] [address] Sydnie Reeves Urea nitrogen/Creatinine [Mass ratio] 10.7 mg/mg Normal [facility] Comment on above: Performed By: #### C MP, LIPID #### [facility] [address] [place] [address] CHEST WO CONon [...] JOSE YING Date: 2022-06-06 16:46 Normal [facility] CT CHEST WO CON [employer] Other CT CHEST WO CONon 11-22-2021 CT [...] HEDY JOINER Date: 2021-11-22 10:02 Normal [facility] XR hip LT min 2V(w/wo pelvis )*on 09-12-2021 XR hip LT min 2V(w/wo pelvis)* [facility] Main [place] [address] [place] [address] XRay Report Signed Patient: Lynette Santamaria MR#: [id number] 2 : 1960 Acct:[id number] Age/Sex: 61 / M ADM Date: 09/12/21 Loc: [facility] Room: Type: [facility] Attending Dr: Sixto Romeo II, MD Ordering [...] Mckinley Jr., D.O.09/12/2021 2:51 PM Dictation Location: [place] [address] Transcribed By: [facility] 09/12/21 1451 Dictated By: Fred Mckinley Jr, DO 09/12/21 1449 Signed By: 09/12/21 1451 Normal [facility] C-REACTIVE PROTEINon 021 CRP 1.1 mg/dL High <0.8 [facility] Comment on above: Performed By: #### C RP #### [facility] [address] [place] [address], ERYTHROCYTE SEDIMENTATION RA Dena 05-30-2020 ESR (Bld) [Velocity] 5 mm/h Normal <=20 [facility] Comment on above: Performed By: #### E SR #### [facility] [address] [place] [address], Progress Noteson 05-30-2020 Production Engineer Authentication Interface Message Text Patient was identified by name and date of . Kwaku Palafox Patient at risk for falls:No Falls Risk protocol implemented: No Normal [facility] XR RT HIP W/ PELVIS 2-3 [...] lumbar endplate spondylosis. MACRO: None Normal [facility] CARDIAC STRESS/REST INJE CTIONon 05-19-2019 [facility] CARDIAC STRESS/REST INJECTION Patient Name: LYNETTE SANTAMARIA STUDY: MYOCARDIAL PERFUSION STRESS TEST WITH EXERCISE Performing facility: [facility], [address] [place] [address], [address], [address] Provider: Deandra Gonzalez DO, [facility] PCP: Dr. Emili MCCANN Supervising provider: Santiago Mejia MD, [facility] INDICATION: ACUTE CP HISTORY: Gender: M; Age: 59 y/o ; Height: 180.34 cm; Weight: 305.9223440 kg. High Cholesterol; HTN; CP Quit smoking 10 years ago. COMPARISON: No comparison. ACCESSION NUMBER(S): [id number]; [id number]; [id number] ORDERING CLINICIAN: DEANDRA GONZALEZ TECHNIQUE: ONE DAY [...] comparison. Electronically signed by: SANTIAGO MEJIA MD [facility] Vital Signs Date Time Vital Sign Value Performing Clinician Facility 08-24-2022 12:45-0400 Body height 177.8 cm Jeniffer Bañuelos Other [employer] Other 08-24-2022 12:45-0400 Body mass index (BMI) [Ratio] 33.86 kg/m2 Jeniffer Mercadomond Other [facility] Other 08-24-2022 12:45-0400 Body temperature 98.8 [degF] Jeniffer Mercadomond Other [facility] Other 08-24-2022 12:45-0400 Body weight 107.05 kg Jeniffer Mercadomond Other [facility] Other 08-24-2022 12:45-0400 Diastolic blood pressure 78 mm[Hg] Jeniffer Edda Other [facility] [employer] Other 08-24-2022 12:45-0400 Respiratory rate 18 /min Jeniffer Edda Other [facility] Other 08-24-2022 12:45-0400 SaO2% (BldA) [Mass fraction] 95 % Jeniffer Edda Other [facility] Other 08-24-2022 12:45-0400 Systolic blood pressure 144 mm[Hg] Jeniffer Edda Other [facility] Other 08-07-2022 10:30-0400 Body height 177.8 cm Jeniffer Edda Other [facility] Other 08-07-2022 10:30-0400 Body mass index (BMI) [Ratio] 34.43 kg/m2 Jeniffer Edda Other [facility] Other 08-07-2022 10:30-0400 Body temperature 97.6 [degF] Jeniffer Edda Other [facility] Other 08-07-2022 10:30-0400 Body weight 108.86 kg Jeniffer Edda Other [facility] Other 08-07-2022 10:30-0400 Respiratory rate 18 /min Jeniffer Edda Other [facility] Other 08-07-2022 10:30-0400 SaO2% (BldA) [Mass fraction] 96 % Jeniffer Edda Other [facility] Other 06-25-2022 14:45-0400 Body height 177.8 cm Jose Ball Other [facility] Other 06-25-2022 14:45-0400 Body mass index (BMI) [Ratio] 34.38 kg/m2 Jose Ball Other [facility] Other 06-25-2022 14:45-0400 Body weight 108.68 kg Jose Ball Other [facility] Other 06-25-2022 14:45-0400 Diastolic blood pressure 86 mm[Hg] Jose Ball Other [facility] Other 06-25-2022 14:45-0400 Respiratory rate 12 /min Jose Ball Other [facility] Other 06-25-2022 14:45-0400 Systolic blood pressure 146 mm[Hg] Jose Ball Other [facility] Other 05-20-2022 11:00-0500 Body height 177.8 cm Jose Ball Other [facility] Other 05-20-2022 11:00-0500 Body mass index (BMI) [Ratio] 34.35 kg/m2 Jose Ball Other [facility] Other 05-20-2022 11:00-0500 Body weight 108.59 kg Jose Ball Other [facility] Other 05-20-2022 11:00-0500 Diastolic blood pressure 78 mm[Hg] Jose Ball Other [facility] Other 05-20-2022 11:00-0500 Respiratory rate 12 /min Jose Ball Other [facility] Other 05-20-2022 11:00-0500 Systolic blood pressure 122 mm[Hg] Jose Mccann Other [facility] [employer] Other 09-12-2021 14:00-0400 Body height 177.8 cm Sixto Moberly II Other [facility] Other 09-12-2021 14:00-0400 Body mass index (BMI) [Ratio] 36.44 kg/m2 Sixto Moberly II Other [facility] Other 09-12-2021 14:00-0400 Body weight 115.21 kg Sxito Ousmane II Other [facility] Other 08-01-2021 12:15-0400 Body height 177.8 cm Sixto Ousmane II Other [facility] Other 08-01-2021 12:15-0400 Body mass index (BMI) [Ratio] 36.44 kg/m2 Sixto Moberly II Other [facility] Other 08-01-2021 12:15-0400 Body weight 115.21 kg Sixto Ousmane II Other [facility] Other 06-21-2021 14:15-0500 Body height 177.8 cm Sixto Moberly II Other [facility] Other 06-21-2021 14:15-0500 Body mass index (BMI) [Ratio] 36.44 kg/m2 Sixto Ousmane II Other [facility] Other 06-21-2021 14:15-0500 Body weight 115.21 kg Sixto Moberly II Other [facility] Other 05-31-2021 15:15-0500 Body height 177.8 cm Sixto Moberly II Other [facility] Other 05-31-2021 15:15-0500 Body mass index (BMI) [Ratio] 36.44 kg/m2 Sixto Moberly II Other [facility] Other 05-31-2021 15:15-0500 Body weight 115.21 kg Sixto Moberly II Other [facility] Other 05-09-2021 11:30-0500 Body height 177.8 cm Sixto Moberly II Other [facility] Other 05-09-2021 11:30-0500 Body mass index (BMI) [Ratio] 36.44 kg/m2 Sixto Moberly II Other [facility] Other 05-09-2021 11:30-0500 Body weight 115.21 kg Sixto Moberly II Other [facility] Other 04-03-2021 14:30-0500 Body height 177.8 cm Mp Olexa Other [facility] Other 04-03-2021 14:30-0500 Body mass index (BMI) [Ratio] 36.44 kg/m2 Mp Olexa Other [facility] Other 04-03-2021 14:30-0500 Body weight 115.21 kg Mp Olexa Other [facility] Other Encounters Encounter Date Encounter Type Care Provider Facility Start: 05-23-2023 End: 05-23-2023 ambulatory Jose Ball Other [facility] Other Start: 05-23-2023 [facility] Start: 03-25-2023 End: 03-25-2023 ambulatory Jose Ramy Other [facility] Other Start: 03-25-2023 Telephone encounter [facility] Start: 08-25-2022 End: 08-25-2022 ambulatory Jose Mccann Other [facility] Other Start: 08-25-2022 Telephone encounter Jose [facility] Start: 08-24-2022 End: 08-24-2022 ambulatory Jeniffer Bañuelos Other [facility] Other Start: 08-24-2022 Office outpatient vi sit 15 minutes Jeniffer Bañuelos [facility] Start: 08-22-2022 End: 08-22-2022 ambulatory Jose Mccann Other [facility] Other Start: 08-22-2022 Telephone encounter [facility] Start: 08-21-2022 End: 08-22-[address] GARCIA LISTED REQUEST Facility:[facility] Start: 08-07-2022 Office outpatient vi sit 15 minutes Jeniffer Bañuelos [facility] Start: 08-07-2022 End: 08-07-2022 ambulatory Jeniffer Bañuelos [facility] Work Phone: Start: 08-07-2022 End: 08-07-2022 Patient encounter procedure DO Jose Mccann Work Phone: [facility] Work Phone: Start: 07-10-2022 End: 07-11-[address] JOSE MCCANN Facility:[facility] Start: 06-25-2022 End: 06-25-2022 ambulatory Jose Mccann Other [facility] Other Start: 06-25-2022 Office outpatient vi sit 15 minutes Jose Mccann [facility] Start: 06-14-2022 Encounter for genera l adult medical examination without abnormal findings DR JOSE MCCANN [facility] Start: 06-11-2022 End: 06-11-2022 ambulatory Jose Mccann Other [facility] Other Start: 06-11-2022 Telephone encounter [facility] Start: 06-10-2022 End: 06-11-[address] JOSE MCCANN Facility:[facility] Start: 06-10-2022 End: 06-11-2022 Encounter for general adult medical examination without abnormal findings DR JOSE MCCANN Facility:[facility] Start: 06-06-2022 End: 06-07-[address] JOSE MCCANN Facility:[facility] Start: 05-20-2022 End: 05-20-2022 ambulatory Jose Mccann Other [facility] Other Start: 05-20-2022 Encounter for genera l adult medical examination without abnormal findings Jose Mccann [facility] Start: 05-20-2022 Periodic preventive med est patient 40-64yrs Jose Mccann [facility] Start: 05-18-2022 End: 05-18-2022 ambulatory Jose Mccann Other [facility] Other Start: 05-18-2022 Encounter for genera l adult medical examination without abnormal findings Jose Mccann [facility] Start: 05-18-2022 Telephone encounter [facility] Start: 11-22-2021 End: 11-23-[address] JOSE MCCANN Facility:[facility] Start: 09-12-2021 (Post-Op) Post-Op Sixto Weissle II [facility] Start: 09-12-2021 End: 09-12-2021 ambulatory Sixto Romeo II [facility] Other Start: 08-15-2021 End: 08-15-2021 ambulatory Sixto Romeo II Other [facility] Other Start: 08-15-2021 Office outpatient vi sit 15 minutes Sixto Moberly II [facility] Start: 08-01-2021 (Post-Op) Post-Op Sixto Moberly II [facility] Start: 08-01-2021 End: 08-01-2021 ambulatory Sixto Moberly II Other [facility] Other Start: 07-02-2021 End: 07-02-2021 ambulatory Cindy Reed Other [facility] Other Start: 07-02-2021 Postop follow up vis it related to original px Cindy Reed [facility] Start: 06-21-2021 End: 06-21-2021 ambulatory Sixto Ousmane II Other [facility] Other Start: 06-21-2021 Postop follow up vis it related to original px Sixto Moberly II [facility] Start: 06-15-2021 (Prolonged) Prolonge d Services Sixto Moberly II [facility] Start: 06-15-2021 End: 06-15-2021 ambulatory Sixto Moberly II Other [facility] Other Start: 06-12-2021 End: 06-12-2021 ambulatory Sixto Moberly II Other [facility] Other Start: 06-12-2021 Telephone encounter Sixto Ousmane II [facility] Start: 05-31-2021 End: 05-31-2021 ambulatory Sixto Moberly II Other [facility] Other Start: 05-31-2021 Encounter for other preprocedural examination Sixto Moberly II [facility] Start: 05-31-2021 Patient encounter procedure Sixto Moberly II [facility] Start: 05-21-2021 End: 05-21-2021 ambulatory Sixto Moberly II Other [facility] Other Start: 05-21-2021 Telephone encounter Sixto Romeo II [facility] Start: 05-09-2021 End: 05-09-2021 ambulatory Sixto Romeo II Other [facility] Other Start: 05-09-2021 FQHC visit new patient Sixto flores II [facility] Start: 04-09-2021 End: 04-09-2021 ambulatory Mp Olexa Other [facility] Other Start: 04-09-2021 Telephone encounter Mp Olexa [facility] Start: 04-03-2021 End: 04-03-2021 ambulatory Mp Olexa Other [facility] Other Start: 04-03-2021 Encounter for other preprocedural examination Mp Olexa [facility] Start: 04-03-2021 Office outpatient ne w 45 minutes Mp Olexa [facility] Start: 05-30-2020 End: 05-31-2020 ambulatory UNKNOWN PROVIDER Facility:[facility] Procedures Date Procedure Procedure Detail Performing Clinician Start: 08-07-2022 Plain X-ray of left wrist DO Jose Mccann Work Phone: Start: 06-10-[address] GUPTA IN RAMY Comment on above: Performed By: #### P [facility] #### [facility] [address] [place] [address] Dr. Sydnie Reeves Immunizations Immunization Date Immunization Notes Care Provider Fa cilisindi 04-02-2021 COVID-19 Iron [place] Olex a Other [facility] 07-22-2020 COVID-19 Iron [place] a Other [facility] 06-24-2020 COVID-19 Iron [place] Olex a Other [facility] 04-28-2019 Influenza, injectabl e, Madin Nat Canine Kidney, preservative free, quadrivalent DO Jose Mccann Work Phone: [facility] Payers Date Payer Category Payer Unknown [id number] 1960 Unknown [id number] 1960 Unknown [id number] 2.16.84 [id number] 1960 Unknown [id number] 2.16.84 [id number] 1960 Unknown [id number] 2.16.84 [id number] 1960 Unknown [id number] 2.16.84 [id number] 1959 Private Health Insurance [facility] [id number] 1959 Private Health Insurance [facility] [id number] 1959 Self-pay Unknown [id number] 2.16.8 [id number] Unknown [id number] 2.16.8 [id number] Unknown O [id number] Unknown [id number] [id number] [id number] Social History Date Type Detail Facility Sex Assigned At [facility] Other Sex Assigned At Sex Assigned At Bir th [facility] Other Start: 06-18-2021 Tobacco smoking status NHIS Ex-smoker (finding) [facility] Start: 1960 Sex Assigned At Male F [facility] Medical Equipment Procedure Code Equipment Code Equipment Origin al Text Equipment Identifier Dates Arthroplasty, hip, total, anterior approach Acetabular shell [id number] FDA Start: 06-18-2021 Arthroplasty, hip, total, anterior approach Ceramic femoral head prosthesis ()[id number] FDA Start: 06-18-2021 Arthroplasty, hip, total, anterior approach Coated hip femur prosthesis, modular [id number] FDA Start: 06-18-2021 Arthroplasty, hip, total, anterior approach Non-constrained polyethylene acetabular liner [id number] FDA Start: 06-18-2021 Clinical Notes 04-03-2021 to 05-23-2023 Note Date & Type Note Facility 05-23-2023 Evaluation note Encounter Date Diagnosis Assessment Notes May, Pulmonary nodule (ICD-10 - R91.1) [facility] Other 05-13-2023 Evaluation note* Encounter Date Diagnosis Assessment Notes Treatment Notes Treatment Clinical Notes August, Bronchitis (ICD-10 - J40) Acute bronchitis material was printed Drink plenty fluids, get plenty of rest. Take the doxycycline and prednisone as prescribed until gone. Use the albuterol inhaler as prescribed as needed for cough or shortness of breath. Continue take your brar-jkz-pexiarv cough medicine. Follow-up with your family physician if no improvement in 2 to 3-day [facility] Other 04-26-2023 Evaluation note* Encounter Date Diagnosis [...] no improvement in 5 to 7 days [facility] Other 03-14-2023 Evaluation note* Encounter Date Diagnosis Assessment Notes Treatment Notes Treatment Clinical Notes Jun, Scrotal mass (ICD-10 - N50.89) Ill defined right scrotal mass. Recommend US to assist in ID Jun, Polyuria (ICD-10 - R35.89) Likely unrelated to scrotal mass. BPH, monitor for now [facility] Other 02-06-2023 Evaluation note* Encounter Date Diagnosis [...] use, the patient reduces the risk for DE, CVA, HTN, cardiac dysrhythmias and sudden cardiac [...] May, Hx of gout (ICD-10 - Z87.39) [facility] Other 02-04-2023 Evaluation note* Encounter Date Diagnosis Assessment Notes Treatment Notes Treatment Clinical Notes May, Pulmonary nodule (ICD-10 - R91.1) Left sided 5mm apical nodule, 6.2mm basilar nodule (initially noted on CT abd 05/2020) May, Wellness examination (ICD-10 - Z00.00) [facility] Other 06-01-2022 Evaluation note* Encounter Date Diagnosis Assessment Notes Treatment Notes Treatment Clinical Notes Sep, Arthritis of left hip (ICD-10 - M16.12) Sep, [place] (obstructive sleep apnea) (ICD-10 - G47.33) Sep, History of total left hip arthroplasty (ICD-10 - 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 Shared decision made to continue prophylactic antibiotics indefinitely. Follow-up at 1 year post-op for repeat examination and repeat x-rays. Patient instructed to call with any questions or concerns. [facility] Other 05-04-2022 Evaluation note* Encounter Date Diagnosis [...] we will have him come back yearly. [facility] Other 04-20-2022 Evaluation note* Encounter Date Diagnosis Assessment Notes Treatment Notes Treatment Clinical Notes Jul, Arthritis of left hip (ICD-10 - M16.12) Jul, [place] (obstructive sleep apnea) (ICD-10 - G47.33) Jul, History of total left hip arthroplasty (ICD-10 - Z96.642) Jul, Other [facility] on 06/18/2021 Doing well In regards to the incision area, I recommended that he keep it clean and dry. We also prescribed him 1 week of Duricef. I will plan to see him back in 2 weeks for a wound recheck. No x-rays at that time. Patient may continue increasing activities as tolerated. Continue taking ddly-oky-glmeyfs anti-inflammatorie s as needed for assistance with swelling and pain associated with the operative extremity. [facility] Other 03-21-2022 Evaluation note* Encounter Date Diagnosis [...] our office with any concerns or questions. [facility] Other 03-10-2022 Evaluation note* Encounter Date Diagnosis [...] from his surgery. Normally I would have [facility] home health physical therapy take the Prevena [...] see him as regularly scheduled on 07/04. [facility] Other 03-04-2022 Evaluation note* Encounter Date Diagnosis [...] patient could proceed with surgery safely. The real estate office manager was vital for surgery timing and scheduling [...] plans. Prolonged services time spent: 33 minutes [facility] Other 02-17-2022 Evaluation note* Encounter Date Diagnosis [...] accessible throughout. Joints Meeting Checklist - Pharmacy: [facility] to bed - Approach/Technique: Anterior, [place] table - Implants: Avenir Complete; G7 - Anesthesia: General - Blocks: Fascia iliaca - Preop Antibiotics: Ancef - TXA: Yes-systemic - Positioning/OR Bed: Supine on [place] bed - Intraop X-ray: Yes - Lopez: [...] elected to proceed with the above surgery. 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 [facility] Other 12-28-2021 History general Narrative - Reported* Type Description Date Medical History high blood pressure Medical History [place] Surgical History exploratory pins in back and pe lvis Surgical History total right hip Surgical History left carpal tunnel release 03/15 12/02 Surgical History BILAT GREAT TOE SURGERY [facility] Other 12-21-2021 Evaluation note* Encounter Date Diagnosis [...] outcome. Mar, Pre-op examination (ICD-10 - Z01.818) [facility] Other Evaluation noteNortFresh Dish Other Evaluation noteNo InformationNort [employer] Other Evaluation noteNo assessment information available [facility] Work Phone: [facility] general Narrative - [facility] [employer] Other Hisnedl general Narrative - Reported* Type Description Date Medical History high blood pressure Surgical History exploratory pins in back and pe lvis Surgical History total right hip [facility] Other [facility] general Narrative - Reported* Type Description Date Medical History Hypertension Medical History Hypercholesterolemia Medical History [place] (obstructive sleep apnea) Medical History Pulmonary nodule Medical History Nicotine dependence in remission Surgical History exploratory pins in back and pe lvis Surgical History total right hip Surgical History left carpal tunnel release 03/15 12/02 Surgical History BILAT GREAT TOE SURGERY Hospitalization History SEE SURGICAL HX [facility] Other Hiscdsz general Narrative - Reported* Type Description Date [...] LEFT HIP Hospitalization History SEE SURGICAL HX [facility] Other Summary Purpose Family History Relationship Condition [...] section and content) DATE CREATED AUTHOR 05/21/2019 [facility] DATE CREATED AUTHOR AUTHOR'S ORGANIZ ATION 05/30/2021 [employer] [facility] DATE CREATED AUTHOR AUTHOR'S ORGANIZ ATION 08/08/2022 [facility] DATE CREATED AUTHOR AUTHOR'S ORGANIZ [...] BE BASED ON THE PRIMARY CLINICAL RECORDS. [employer] [facility]. provides no warranty or guarantee of the accuracy or completeness of information in this document.
--- NOTE | 2023-06-20 10:00 | CA_ITS ---
Patient Name: LYNETTE RODRIGUEZ MR#: [id number] : 1960 Exam Date: 06/20/2023 Ordering Doctor: DR Jose Mccann D.O. ECHOCARDIOGRAM REPORT PROCEDURE: CA ECHO DOPPLER COMPLETE INDICATIONS: Heart murmur, hypertension COMPARISON: None. DESCRIPTION: COMPLETE ECHOCARDIOGRAM Real-time transthoracic echocardiography with 2D, M-mode, spectral and color flow Doppler performed. QUALITY: Technical quality was good. 70 , 235#, BSA 2.24 m2 LEFT VENTRICLE: Normal chamber size. Mild left ventricular hypertrophy. LV EF: Global left ventricular systolic function is normal; visually estimated ejection fraction is 60 to 65%. No obvious wall motion abnormalities. DIASTOLIC: Grade II diastolic dysfunction. ATRIAL SEPTUM: Inadequately seen. LEFT ATRIUM: Severe dilatation. RIGHT ATRIUM: Mild dilatation. RIGHT VENTRICLE:Normal chamber size. Normal right ventricular systolic function. TRICUSPID VALVE: Normal mobility and thickness. No stenosis with trivial regurgitation. Doppler studies reveal moderately (45-60) elevated right sided pressures. RVSP 46 mmHg MITRAL VALVE: Normal mobility and thickness. No evidence of mitral valve stenosis. There is no mitral annular calcification. Mild mitral regurgitation. AORTIC VALVE: Normal trileaflet appearance. Moderately calcified aortic valve with reduced mobility. Doppler velocity suggests mild aortic valve stenosis. Mild aortic regurgitation. AORTIC ROOT: Normal diameter and appearance. Mildly dilated ascending aorta (3.8cm) PULMONIC VALVE: Normal thickness and mobility. No stenosis. No regurgitation. PERICARDIUM: Anterior free space; trivial effusion versus fat pad. IVC: Not well visualized. CONCLUSION: 1. Global left ventricular systolic function is normal; visually estimated ejection fraction is 60 to 65% 2. Normal right ventricular size and systolic function 3. Mildly increased left ventricular wall thickness 4. Grade 2 diastolic dysfunction 5. Biatrial enlargement 6. Moderately elevated right ventricular systolic pressure; RVSP 46 mmHg 7. Mild mitral regurgitation 8. Mild aortic valve stenosis, mild aortic valve regurgitation 9. Mildly dilated ascending aorta 10. Anterior free space; trivial effusion versus fat pad Adult Echocardiography Procedure Report Left Ventricle LVEDD (3.7 - 5.6 cm): 4.89 cm LVESD (2.2 - 4.0 cm): 3.09 cm LVIVS thickness (0.6 - 1.2 cm): 1.31 cm LVPW thickness (0.5 - 1.0 cm): 1.08 cm e': 0.05 m/s E - e': 18.89 LVOT Max Gradient: 3.56 mm[Hg] LVOT Area (cm2): 0.94 m/s Peak Velocity (LVOT): 0.94 m/s Mean Velocity (LVOT): 0.68 m/s LVOT Diameter 1.92 cm Left Ventricular Ejection Fraction: Left Atrium LA Volume Index (2D A2C): 40.35 ml/m2 Left Atrium Systolic Dimension: 3.84 cm Mitral Valve MV E to A Ratio: 1.19 MV Max Gradient: MV Mean Gradient: Mitral Valve A-Wave Peak Velocity: 0.81 m/s Mitral Valve E-Wave Peak Velocity: 0.97 m/s Cardiovascular Orifice Area: Right Ventricle RV Internal Diastolic Dimension: Aorta AO Root Diam: 3.81 cm Ascending Ao Diam: 3.83 cm Aortic Valve AoV Area (Peak Tiago): 1.02 cm2, 1.12 cm2 AoV Area (VTI): 1.33 cm2, 1.55 cm2 Deceleration [place]: 1.87 m/s2 Pressure Half-Time: 661.96 ms Peak Velocity(Antegrade Flow): 2.43 m/s, 2.67 m/s, 2.65 m/s Peak Gradient(Antegrade Flow): 23.65 mm[Hg], 28.51 mm[Hg], 28.06 mm[Hg] Mean Velocity(Antegrade Flow): 1.82 m/s, 2.10 m/s, 1.93 m/s Mean Gradient(Antegrade Flow): 14.52 mm[Hg], 19.45 mm[Hg], 17.19 mm[Hg] Velocity Time Integral: 56.71 cm, 63.92 cm, 66.07 cm Tricuspid Valve Peak Velocity (Regurgitant Flow): 3.08 m/s Peak Velocity: Pulmonic Valve Mean Gradient: 2.12 mm[Hg], 2.46 mm[Hg] Mean Velocity: 0.68 m/s, 0.73 m/s Peak Velocity: 0.97 m/s Peak Gradient: 3.80 mm[Hg], 4.76 mm[Hg], 3.73 mm[Hg] Right Atrium Right Atrium Systolic Pressure: 55.80 ml, 55.80 ml Dictated by: Sho Mixon M.D. on 06/20/2023 at 14:11 Approved by: Sho Mixon M.D. on 06/20/2023 at 14:17
== END 2023-06-20 09:49 | disposition home or self-care (01) ==
LOC: CARD 09:49
PROVIDERS: PCP Internal Medicine; Visit Provider Internal Medicine
DX: R01.1 Cardiac murmur, unspecified (principal)
CPT/HCPCS: 93306

== ENCOUNTER 2023-11-11 13:50 | Outpatient (OUT) | payer OTHER, SELFPAY | END 2023-11-11 13:51 | disposition home or self-care (01) | LOC: PST 13:50 | PROVIDERS: PCP Internal Medicine; Visit Provider Surgery | DX: Z01.818 Encounter for other preprocedural examination (principal); R11.0 Nausea; R19.7 Diarrhea, unspecified ==

== ENCOUNTER 2023-11-19 07:34 | Day surgery (SDC) | payer OTHER, SELFPAY ==
--- OUTSIDE RECORDS SUMMARY | 2023-11-19 07:37 | XMS_ITS | CCD ---
Author Organization [facility] Care Team Providers Care Kitchen Chef Name Role Phone PROVIDER, UNKNOWN Attending Unavailable PROVIDER, UNKNOWN Admitting Unavailable JH OGLESBY Referring Unavailable Mp Jaquez Unavailable Sixto Romeo II Unavailable [phone] Cindy Reed Unavailable Jose Mccann Unavailable Jeniffer Bañuelos Unavailable Sixto Romeo II Admitting UnavailSixto Jain II Attending Unavailjeffrey e Jose Mccann Primary Care Unavailable Jeniffer Bañuelos Admitting Unavailable Jeniffer Bañuelos Attending Unavailable Jose Mccann Primary Care Unavailable DO Jose Mccann Primary Care Provider [phone] AARTI Bañuelos Attending Provider RAMY, DR CHIN Admitting Unavailable BALL, DR CHIN Primary Care Unavailable BALL, DR CHIN Consulting Unavailable RAMY, DR CHIN Attending Unavailable HEDY JOINER V Consulting Unavailable REQUEST, DR GARCIA LISTED Admitting Unavaila ble BALL, DR CHIN Primary Care Unavailable REQUEST, DR [...] CHIN Attending Unavailable JOSE YING Consulting Unavailable LIZ TILLEY Attending Unavailable JOSE MCCANN Referring Unavailable JOSE MCCANN Primary Care Unavailable Medications Current Medications Medication Drug Class(es) [...] tablet (1 source) Opioid Agonist Start: 04-09-2021 [id number] actuat albuterol 0.09 mg/actuat metered dose [...] Orally every 12 hrs for 7 days Jul, Active Start: 05-31-2021 take 1 capsule by [facility] every twelve hours Cefadroxil 500 MG 1 [...] Active docusate sodium 50 mg / sennosides, [facility] 8.6 mg oral tablet (4 sources) Start: [...] every Start: 05-21-2021 take 1 capsule by [facility] every week Ergocalciferol 1.25 MG (40196 UT) 1 capsule Orally Once a week [...] 2021 3:03pm take 1 tablet by [facility] twice daily Metoprolol Tartrate 25 MG TAKE [...] DISCHARGE 06/25/2021 May, Active polyethylene glycol 3350 90708 mg powder for oral solution (4 sources) [...] Active Problems Problem Classification Problem Date Documented Da te Episodic/Chronic Chronic obstructive pulmonary disease and bronchiectasis (1 source) Bronchitis, not specified as acute or chronic Episodic Disorders of lipid metabolism (12 sources) Hypercholesterolemia; Translations: [Pure hypercholesterolemia, unspecified] Chronic Essential hypertension (12 sources) Hypertensive disorder; Translations: [Essential (primary) hypertension] Chronic Genitourinary symptoms and ill-defined conditions (3 sources) Polyuria; Translations: [Polyuria] Episodic Nausea and vomiting (2 sources) Nausea; Translations: [Nausea] Onset: 10-22-2023 Episodic Nonspecific chest pain (1 source) Chest [...] musculoskeletal system and connective tissue Episodic Other gastrointestinal disorders (1 source) Diarrhea, unspecified; Translations: [Diarrhea, unspecified] Onset: 10-22-2023 Episodic Other gastrointestinal disorders (1 source) Diarrhea Onset: 10-22-2023 Episodic Other lower respiratory disease (10 sources) [...] Other aftercare (1 source) Other exterminator helper (current) drug therapy Onset: 05-09-2021 Resolved: 05-09-2021 Episodic Other non-traumatic joint disorders (1 source) Pain in left hip Onset: 05-09-2021 Resolved: 05-09-2021 Episodic Residual codes; unclassified (3 sources) Other specified postprocedural states Onset: 04-09-2021 Resolved: 07-02-2021 Episodic Unclassified (1 source) Polyuria R35.89 Results Test Name Value Interpretation Reference Range Facility GLYCOHEMOGLOBIN A1Con 2022 ADA RECOMMENDATION SEE BELOW Normal [facility] Comment on above: Result Comment: ADA RECOMMENDED LIMIT 4.0 - 6.0 ADA THERAPEUTIC TARGET < 7.0 ACTION SUGGESTED > 7.0 Performed By: #### D ATA1C #### [facility] [address] [address] [address] Sydnie Reeves Glucose [Mass/Vol] 120 mg/dL Normal [facility] Comment on above: Performed By: #### D ATA1C #### [facility] [address] [place], [place] [address] Dr. Sydnie Reeves HbA1c (Bld) [Mass fraction] 5.8 % Normal 4.5-6.2 [facility] Comment on above: Performed By: #### D ATA1C #### [facility] [address] [address] [address] Sydnie Reeves XR wrist LT min 3V*on 2022 XR wrist LT min 3V* [facility] [employer] Other XR wrist LT min 3V* [facility] [employer] Other XR wrist LT min 3V* [address] [place] [address] [employer] Other XR wrist LT min 3V* [address] [employer] Other XR wrist LT min 3V* XRay Report [facility] [email or web address] Other XR wrist LT min 3V* Signed [employer] Other XR wrist LT min 3V* Patient: Lynette Santamaria MR#: [id number] [facility] [employer] Other XR wrist LT min 3V* 2 [employer] Other XR wrist LT min 3V* : 1960 Acct:[id number] [facility] [employer] Other XR wrist LT min 3V* Age/Sex: 62 / M ADM Date: 08/07/22 [employer] Other XR wrist LT min 3V* Loc: XDUCLY Room: Type: [facility] [employer] Other XR wrist LT min 3V* Attending Dr: Jeniffer BROUSSARD [employer] Other XR wrist LT min 3V* Copies to: AARTI Escobar [employer] Other XR wrist LT min 3V* Ordering Provider: AARTI Escobar [employer] Other XR wrist LT min 3V* Date of Service: 08/07/22 [employer] Other XR wrist LT min 3V* XR/XR wrist LT min 3V*: Left wrist pain [employer] Other XR wrist LT min 3V* 4 views of the LEFT wrist plain film [employer] Other XR wrist LT min 3V* COMPARISON: None [employer] Other XR wrist LT min 3V* HISTORY: LEFT wrist injury. Ulnar-sided pain and swelling. [employer] Other XR wrist LT min 3V* Acute findings: None corticated bony density near the distal radius likely represents benign [employer] Other XR wrist LT min 3V* finding. [employer] Other XR wrist LT min 3V* Degenerative change: Moderate 1st carpometacarpal degenerative change present. Mild prominence of [employer] Other XR wrist LT min 3V* the scapholunate interspace identified. 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 [employer] Other XR wrist LT min 3V* Soft tissue findings : Mild chondrocalcinosis of the triangular fibrocartilage present. [employer] Other XR wrist LT min 3V* Joint effusion: None [employer] Other XR wrist LT min 3V* Postop changes: None [employer] Other XR wrist LT min 3V* XR/XR wrist LT min 3V* [employer] Other XR wrist LT min 3V* IMPRESSION: No acute bony findings. [employer] Other XR wrist LT min 3V* Impression dictated by: Oz Clancy M.D.08/07/2022 10:08 AM [employer] Other XR wrist LT min 3V* Dictation Location: [place] [address] [employer] Other XR wrist LT min 3V* Transcribed By: TYLER 08/07/22 1008 [employer] Other XR wrist LT min 3V* Dictated By: Oz Clancy DO 08/07/22 1005 [employer] Other XR wrist LT min 3V* Signed By: [employer] Other XR wrist LT min 3V* 08/07/22 1008 No rt [email or web address] Other XR wrist LT min 3V* [facility] [place] [address] [place] [address] XRay Report Signed Patient: Lynette Santamaria MR#: [id number] 2 : 1960 Acct:[id number] Age/Sex: 62 / M ADM Date: 08/07/22 Loc: XDUCLY Room: Type: [facility] Attending Dr: Jeniffer BROUSSARD Copies to: [...] Oz Clancy M.D.08/07/2022 10:08 AM Dictation Location: [place] [address] Transcribed By: [facility] 08/07/22 1008 Dictated By: Oz Clancy DO 08/07/22 1005 Signed By: 08/07/22 1008 [facility] US SCROTUMon 07-11-2022 US SCROTUM EXAMINATION: [...] HEDY JOINER Date: 2022-07-11 07:55 Normal [facility] CBC AUTO DIFFon 06-10-2022 BASO # 0.0 103/ul Normal 0.0-0.1 [facility] Comment on above: Performed By: #### C BC #### [facility] [address] [place] [address] Dr. Sydnie Reeves Basophils/100 WBC (Bld) 0.4 % Normal 0.2-2.0 [facility] Comment on above: Performed By: #### C BC #### [facility] [address] [place] [address] Dr. Sydnie Reeves EO # 0.2 103/ul Normal 0.0-0.7 [facility] Comment on above: Performed By: #### C BC #### [facility] [address] [place] [address] Dr. Sydnie Reeves Eosinophils/100 WBC (Bld) 3.3 % Normal 0.9-7.0 [facility] Comment on above: Performed By: #### C BC #### [facility] [address] [place] [address] Dr. Sydnie Reeves Erythrocyte distribution width (RBC) [Ratio] 13.1 % Normal 11.0-15.0 [facility] Comment on above: Performed By: #### C BC #### [facility] [address] [place] [address] Dr. Sydnie Reeves Hematocrit (Bld) [Volume fraction] 44.0 % Normal 42.0-54.0 [facility] Comment on above: Performed By: #### C BC #### [facility] [address] [place] [address] Dr. Sydnie Reeves Hemoglobin (Bld) [Mass/Vol] 15.1 g/dL Normal 14.0-18.0 [facility] Comment on above: Performed By: #### C BC #### [facility] [address] [place] [address] Dr. Sydnie Reeves IG # 0.03 10e3/ul Normal 0.00-0.03 [facility] Comment on above: Performed By: #### C BC #### [facility] [address] [place] [address] Dr. Sydnie Reeves IG % 0.7 % Critically high 0.0-0.5 [facility] Comment on above: Performed By: #### C BC #### [facility] [address] [place] [address] Dr. Sydnie Reeves LYMPH # 1.2 103/ul Normal 1.2-3.8 [facility] Comment on above: Performed By: #### C BC #### [facility] [address] [place] [address] Dr. Sydnie Reeves Lymphocytes/100 WBC (Bld) 24.9 % Normal 20.5-60.0 [facility] Comment on above: Performed By: #### C BC #### [facility] [address] [place] [address] Dr. Sydnie Reeves MANUAL DIFF REQ NO Normal [facility] Comment on above: Performed By: #### C BC #### [facility] [address] [place] [address] Dr. Sydnie Reeves MCH (RBC) [Entitic mass] 30.4 pg Normal 25.9-34.0 [facility] Comment on above: Performed By: #### C BC #### [facility] [address] [place] [address] Dr. Sydnie Reeves MCHC (RBC) [Mass/Vol] 34.3 g/dL Normal 29.9-35.2 [facility] Comment on above: Performed By: #### C BC #### [facility] [address] [place] [address] Dr. Sydnie Reeves MCV (RBC) [Entitic vol] 88.7 fL Normal 80.0-94.0 [facility] Comment on above: Performed By: #### C BC #### [facility] [address] [place] [address] Dr. Sydnie Reeves MONO # 0.5 103/ul Normal 0.3-0.8 [facility] Comment on above: Performed By: #### C BC #### [facility] [address] [place] [address] Dr. Sydnie Reeves Monocytes/100 WBC (Bld) 10.2 % Normal 1.7-12.0 [facility] Comment on above: Performed By: #### C BC #### [facility] [address] [place] [address] Dr. Sydnie Reeves NEUT # 2.8 103/ul Normal 1.4-6.5 [facility] Comment on above: Performed By: #### C BC #### [facility] [address] [place] [address] Dr. Sydnie Reeves Neutrophils/100 WBC (Bld) 60.5 % Normal 43.0-75.0 [facility] Comment on above: Performed By: #### C BC #### [facility] [address] [place] [address] Dr. Sydnie Reeves Platelet mean volume (Bld) [Entitic vol] 10.5 fL Normal 9.5-13.5 [facility] Comment on above: Performed By: #### C BC #### [facility] [address] [place] [address] Dr. Sydnie Reeves PLT 202 103/ul Normal 150-450 [facility] Comment on above: Performed By: #### C BC #### [facility] [address] [place] [address] Dr. Sydnie Reeves RBC 4.96 106/ul Normal 4.70-6.10 [facility] Comment on above: Performed By: #### C BC #### [facility] [address] [place] [address] Dr. Sydnie Reeves WBC 4.6 103/ul Normal 4.0-11.0 [facility] Comment on above: Performed By: #### C BC #### [facility] [address] [place] [address] Dr. Sydnie Reeves Complete Blood Count and Dif julio 06-10-2022 Anisocytosis Ql (Bld) [facility] [employer] Other Basophilic stippling LM Ql (Bld) [employer] Other RBC morphology finding Nom (Bld) [employer] Other Comprehensive Metabolic Pane pablo 06-10-2022 Comprehensive Metabolic Panel [facility] [employer] Other LIPID PROFILEon 06-10-2022 CHOL-HDL RATIO NORM SEE BELOW Normal [facility] Comment on above: Result Comment: 3.3 - 4.4 LOW RISK 4.4 - 7.1 AVERAGE RISK 7.1 - 11.0 MODERATE RISK >11.0 HIGH RISK Performed By: #### C MP, LIPID #### [facility] [address] [place] [address] Dr. Sydnie Reeves Cholesterol [Mass/Vol] 172 mg/dL Normal <=200 [facility] Comment on above: Performed By: #### C MP, LIPID #### [facility] [address] [place] [address] Dr. Sydnie Reeves Cholesterol in HDL [Mass/Vol] 71 mg/dL Critically high 40-60 [facility] Comment on above: Performed By: #### C MP, LIPID #### [facility] [address] [place] [address] Dr. Sydnie Reeves Cholesterol in LDL [Mass/Vol] 62.2 mg/dL Normal [facility] Comment on above: Performed By: #### C MP, LIPID #### [facility] [address] [place] [address] Dr. Sydnie Reeves Cholesterol.total/C holesterol in HDL [Mass ratio] 2.4 {ratio} Normal [facility] Comment on above: Performed By: #### C MP, LIPID #### [facility] [address] [place] [address] Dr. Sydnie Reeves HDL NORMAL > or = 60 mg/dl - LO W CARDIOVASCULAR RISK <40 mg/dl - HIGH CARDIOVASCULAR RISK Normal [facility] Comment on above: Performed By: #### C MP, LIPID #### [facility] [address] [place] [address] Dr. Sydnie Reeves LDL CALC NORMAL SEE BELOW Normal [facility] Comment on above: Result Comment: <100 mg/dl OPTIMAL 100 - 129 mg/dl NEAR OR ABOVE OPTIMAL 130 - 159 mg/dl BORDERLINE HIGH 160 - 189 mg/dl HIGH >190 mg/dl VERY HIGH Performed By: #### C MP, LIPID #### [facility] [address] [place] [address] Dr. Sydnie Reeves Triglyceride [Mass/Vol] 194 mg/dL Critically high <=150 [facility] Comment on above: Performed By: #### C MP, LIPID #### [facility] [address] [place] [address] Dr. Sydnie Reeves VLDL CALC 38.8 mg/dL Normal [facility] Comment on above: Performed By: #### C MP, LIPID #### [facility] [address] [place] [address] Dr. Sydnie Reeves PROF 14(COMP METB)on 023 Albumin [Mass/Vol] 3.8 g/dL Normal 3.4-5.0 [facility] Comment on above: Performed By: #### C MP, LIPID #### [facility] [address] [place] [address] Dr. Sydnie Reeves Albumin/Globulin [Mass ratio] 1.2 {ratio} Normal [facility] Comment on above: Performed By: #### C MP, LIPID #### [facility] [address] [place] [address] Dr. Sydnie Reeves ALP [Catalytic activity/Vol] 102 U/L Normal 46-116 [facility] Comment on above: Performed By: #### C MP, LIPID #### [facility] [address] [place] [address] Dr. Sydnie Reeves ALT [Catalytic activity/Vol] 39 U/L Normal 16-63 [facility] Comment on above: Performed By: #### C MP, LIPID #### [facility] [address] [place] [address] Dr. Sydnie Reeves Anion gap [Moles/Vol] 10.7 mmol/L Normal [facility] Comment on above: Performed By: #### C MP, LIPID #### [facility] [address] [place] [address] Dr. Sydnie Reeves AST [Catalytic activity/Vol] 23 U/L Normal 15-37 [facility] Comment on above: Performed By: #### C MP, LIPID #### [facility] [address] [place] [address] Dr. Sydnie Reeves Bilirubin [Mass/Vol] 0.7 mg/dL Normal 0.2-1.0 [facility] Comment on above: Performed By: #### C MP, LIPID #### [facility] [address] [address] [address] Sydnie Reeves Calcium [Mass/Vol] 9.7 mg/dL Normal 8.5-10.1 [facility] Comment on above: Performed By: #### C MP, LIPID #### [facility] [address] [address] [address] Sydnie Reeves Chloride [Moles/Vol] 100 mmol/L Normal 98-107 [facility] Comment on above: Performed By: #### C MP, LIPID #### [facility] [address] [address] [address] Sydnie Reeves CO2 [Moles/Vol] 30.4 mmol/L Normal 21.0-32.0 [facility] Comment on above: Performed By: #### C MP, LIPID #### [facility] [address] [place] [address] Dr. Sydnie Reeves Creatinine [Mass/Vol] 0.84 mg/dL Normal 0.70-1.30 [facility] Comment on above: Performed By: #### C MP, LIPID #### [facility] [address] [place] [address] Dr. Sydnie Reeves EGFR-AF MOROCCAN >60 Normal >=60 [facility] Comment on above: Performed By: #### C MP, LIPID #### [facility] [address] [place] [address] Dr. Sydnie Reeves EGFR-NON AF MOROCCAN >60 Normal >=60 [facility] Comment on above: Performed By: #### C MP, LIPID #### [facility] [address] [place] [address] Dr. Sydnie Reeves Globulin (S) [Mass/Vol] 3.3 g/dL Normal [facility] Comment on above: Performed By: #### C MP, LIPID #### [facility] [address] [place] [address] Dr. Sydnie Reeves Glucose [Mass/Vol] 125 mg/dL Critically high 74-106 [facility] Comment on above: Performed By: #### C MP, LIPID #### [facility] [address] [address] [address] Sydnie Reeves Potassium [Moles/Vol] 4.1 mmol/L Normal 3.5-5.1 [facility] Comment on above: Performed By: #### C MP, LIPID #### [facility] [address] [address] [address] Sydnie Reeves Protein [Mass/Vol] 7.1 g/dL Normal 6.4-8.2 [facility] Comment on above: Performed By: #### C MP, LIPID #### [facility] [address] [address] [address] Sydnie Reeves Sodium [Moles/Vol] 137 mmol/L Normal 136-145 [facility] Comment on above: Performed By: #### C MP, LIPID #### [facility] [address] [place] [address] Dr. Sydnie Reeves Urea nitrogen [Mass/Vol] 9.0 mg/dL Normal 7.0-18.0 [facility] Comment on above: Performed By: #### C MP, LIPID #### [facility] [address] [place] [address] Dr. Sydnie Reeves Urea nitrogen/Creatinine [Mass ratio] 10.7 mg/mg Normal [facility] Comment on above: Performed By: #### C MP, LIPID #### [facility] [address] [place] [address] CHEST WO CONon [...] JOSE YING Date: 2022-06-06 16:46 Normal [facility] CT CHEST WO CON TE2 Other CT CHEST WO CONon 11-22-2021 CT [...] HEDY JOINER Date: 2021-11-22 10:02 Normal [facility] XR hip LT min 2V(w/wo pelvis )*on 09-12-2021 XR hip LT min 2V(w/wo pelvis)* [facility] [place] [address] [place], [place] [id number] XRay Report Signed Patient: Lynette Santamaria MR#: [id number] 2 : 1960 Acct:[id number] Age/Sex: 61 / M ADM Date: 09/12/21 Loc: [facility] Room: Type: [facility] Attending Dr: Sixto Romeo II, MD [...] COMPLICATION.. Impression dictated by: Fred Mckinley Jr., [email or web address]/12/2021 2:51 PM Dictation Location: [place] [address] Transcribed By: [facility] 09/12/21 1451 Dictated By: Fred Mckinley Jr, DO 09/12/21 1449 Signed By: 09/12/21 1451 Normal [facility] C-REACTIVE PROTEINon 021 CRP 1.1 mg/dL High <0.8 [facility] [email or web address] [facility] Comment on above: Performed By: #### C RP #### [facility] [address] [place], [place], ERYTHROCYTE SEDIMENTATION RA Dena 05-30-2020 ESR (Bld) [Velocity] 5 mm/h Normal <=20 [facility] [email or web address] Comment on above: Performed By: #### E SR #### [facility] [address] [place], [place], Progress Noteson 05-30-2020 [employer] Authentication Interface Message Text Patient was identified by name and date of . Kwaku Palafox Patient at risk for falls:No Falls Risk protocol implemented: No Normal [facility] XR RT HIP W/ PELVIS 2-3 [...] lumbar endplate spondylosis. MACRO: None Normal [facility] CARDIAC STRESS/REST INJE CTIONon 05-19-2019 [facility] CARDIAC STRESS/REST INJECTION Patient Name: LYNETTE SANTAMARIA STUDY: MYOCARDIAL PERFUSION STRESS TEST WITH EXERCISE Performing facility: [facility], [address] [place] [address], [address], [address] Provider: Deandra Gonzalez DO, [facility] PCP: Dr. Emili MCCANN Supervising provider: Santiago Mejia MD, [facility] INDICATION: ACUTE CP HISTORY: Gender: M; Age: 59 y/o ; Height: 180.34 cm; Weight: 092.8039082 kg. High Cholesterol; HTN; CP Quit smoking 10 years ago. COMPARISON: No comparison. ACCESSION NUMBER(S): [id number]; [id number]; [id number] ORDERING CLINICIAN: DEANDRA GONZALEZ TECHNIQUE: ONE DAY [...] comparison. Electronically signed by: SANTIAGO MEJIA MD Normal [facility] Vital Signs Date Time Vital Sign Value Performing Clinician Facility 08-24-2022 12:45-0400 Body height 177.8 cm Jeniffer Bañuelos Other [employer] Other 08-24-2022 12:45-0400 Body mass index (BMI) [Ratio] 33.86 kg/m2 Jeniffer Bañuelos Other [employer] Other 08-24-2022 12:45-0400 Body temperature 98.8 [degF] Jeniffer Edda Other [employer] Other 08-24-2022 12:45-0400 Body weight 107.05 kg Jeniffer Edda Other [employer] Other 08-24-2022 12:45-0400 Diastolic blood pressure 78 mm[Hg] Jeniffer Edda Other [employer] Other 08-24-2022 12:45-0400 Respiratory rate 18 /min Jeniffer Edda Other [employer] Other 08-24-2022 12:45-0400 SaO2% (BldA) [Mass fraction] 95 % Jeniffer Edda Other [employer] Other 08-24-2022 12:45-0400 Systolic blood pressure 144 mm[Hg] Jeniffer Edda Other [employer] Other 08-07-2022 10:30-0400 Body height 177.8 cm Jeniffer Edda Other [employer] Other 08-07-2022 10:30-0400 Body mass index (BMI) [Ratio] 34.43 kg/m2 Jeniffer Edda Other [employer] Other 08-07-2022 10:30-0400 Body temperature 97.6 [degF] Jeniffer Edda Other [employer] Other 08-07-2022 10:30-0400 Body weight 108.86 kg Jeniffer Edda Other [employer] Other 08-07-2022 10:30-0400 Respiratory rate 18 /min Jeniffer Bañuelos Other [employer] Other 08-07-2022 10:30-0400 SaO2% (BldA) [Mass fraction] 96 % Jeniffer Bañuelos Other [employer] Other 06-25-2022 14:45-0400 Body height 177.8 cm Jose Ball Other [employer] Other 06-25-2022 14:45-0400 Body mass index (BMI) [Ratio] 34.38 kg/m2 Jose Ball Other [employer] Other 06-25-2022 14:45-0400 Body weight 108.68 kg Jose Ball Other [employer] Other 06-25-2022 14:45-0400 Diastolic blood pressure 86 mm[Hg] Jose Ball Other [employer] Other 06-25-2022 14:45-0400 Respiratory rate 12 /min Jose Ball Other [employer] Other 06-25-2022 14:45-0400 Systolic blood pressure 146 mm[Hg] Jose Ball Other [employer] Other 05-20-2022 11:00-0500 Body height 177.8 cm Jose Ball Other [employer] Other 05-20-2022 11:00-0500 Body mass index (BMI) [Ratio] 34.35 kg/m2 Jose Ball Other [employer] Other 05-20-2022 11:00-0500 Body weight 108.59 kg Jose Ball Other [employer] Other 05-20-2022 11:00-0500 Diastolic blood pressure 78 mm[Hg] Jose Ball Other [employer] Other 05-20-2022 11:00-0500 Respiratory rate 12 /min Jose Ball Other [employer] Other 05-20-2022 11:00-0500 Systolic blood pressure 122 mm[Hg] Jose Ball Other [employer] Other 09-12-2021 14:00-0400 Body height 177.8 cm Sixto Ousmane II Other [employer] Other 09-12-2021 14:00-0400 Body mass index (BMI) [Ratio] 36.44 kg/m2 Sixto Ousmane II Other [employer] Other 09-12-2021 14:00-0400 Body weight 115.21 kg Sixto Ousmane II Other [employer] Other 08-01-2021 12:15-0400 Body height 177.8 cm Sixto Ousmane II Other [employer] Other 08-01-2021 12:15-0400 Body mass index (BMI) [Ratio] 36.44 kg/m2 Sixto Ousmane II Other [employer] Other 08-01-2021 12:15-0400 Body weight 115.21 kg Sixto Mancos II Other [employer] Other 06-21-2021 14:15-0500 Body height 177.8 cm Sixto Mancos II Other [employer] Other 06-21-2021 14:15-0500 Body mass index (BMI) [Ratio] 36.44 kg/m2 Sixto Ousmane II Other [employer] Other 06-21-2021 14:15-0500 Body weight 115.21 kg Sixto Mancos II Other [employer] Other 05-31-2021 15:15-0500 Body height 177.8 cm Sixto Ousmane II Other [employer] Other 05-31-2021 15:15-0500 Body mass index (BMI) [Ratio] 36.44 kg/m2 Sixto Mancos II Other [employer] Other 05-31-2021 15:15-0500 Body weight 115.21 kg Sixto Mancos II Other [employer] Other 05-09-2021 11:30-0500 Body height 177.8 cm Sixto Ousmane II Other [employer] Other 05-09-2021 11:30-0500 Body mass index (BMI) [Ratio] 36.44 kg/m2 Sixto Ousmane II Other [employer] Other 05-09-2021 11:30-0500 Body weight 115.21 kg Sixto Mancos II Other [employer] Other 04-03-2021 14:30-0500 Body height 177.8 cm Mp Olexa Other [employer] Other 04-03-2021 14:30-0500 Body mass index (BMI) [Ratio] 36.44 kg/m2 Mp Olexa Other [employer] Other 04-03-2021 14:30-0500 Body weight 115.21 kg Mp Jaquez Other [employer] Other Encounters Encounter Date Encounter Type Care Provider Facility Start: 10-22-2023 End: 10-22-2023 ambulatory [facility] Start: 05-23-2023 End: 05-23-2023 ambulatory Jose Mccann Other [employer] Other Start: 05-23-2023 Telephone encounter Jose Mccann [facility] Start: 03-25-2023 End: 03-25-2023 ambulatory Jose Mccann Other [employer] Other Start: 03-25-2023 Telephone encounter Jose Mccann [facility] Start: 08-25-2022 End: 08-25-2022 ambulatory Jose Mccann Other [employer] Other Start: 08-25-2022 Telephone encounter Jose Mccann [facility] Start: 08-24-2022 End: 08-24-2022 ambulatory Jeniffer Bañuelos Other [employer] Other Start: 08-24-2022 Office outpatient vi sit 15 minutes Jeniffer Edda [facility] Start: 08-22-2022 End: 08-22-2022 ambulatory Jose Mccann Other [employer] Other Start: 08-22-2022 Telephone encounter Jose Mccann [facility] Start: 08-21-2022 End: 08-22-[address] NONE LISTED REQUEST Facility: Start: 08-07-2022 Office outpatient vi sit 15 minutes Jeniffer Edda [facility] Start: 08-07-2022 End: 08-07-2022 ambulatory Jeniffer Bañuelos [facility] Work Phone: Start: 08-07-2022 End: 08-07-2022 Patient encounter procedure DO Jose Mccann Work Phone: [facility] Work Phone: Start: 07-10-2022 End: 07-11-[address] JOSE MCCANN Facility:[facility] Start: 06-25-2022 End: 06-25-2022 ambulatory Jose Mccann Other [employer] Other Start: 06-25-2022 Office outpatient vi sit 15 minutes Jose Mccann [facility] Start: 06-14-2022 Encounter for genera l adult medical examination without abnormal findings DR JOSE MCCANN [facility] Start: 06-11-2022 End: 06-11-2022 ambulatory Jose Mccann Other [employer] Other Start: 06-11-2022 Telephone encounter Jose Mccann [facility] Start: 06-10-2022 End: 06-11-[address] JOSE MCCANN Facility:[facility] Start: 06-10-2022 End: 06-11-2022 Encounter for general adult medical examination without abnormal findings DR JOSE MCCANN Facility:[facility] Start: 06-06-2022 End: 06-07-[address] JOSE MCCANN Facility:[facility] Start: 05-20-2022 End: 05-20-2022 ambulatory Jose Mccann Other [employer] Other Start: 05-20-2022 Encounter for genera l adult medical examination without abnormal findings Jose Mccann [facility] Start: 05-20-2022 Periodic preventive med est patient 40-64yrs Jose Mccann [facility] Start: 05-18-2022 End: 05-18-2022 ambulatory Jose Mccann Other [employer] Other Start: 05-18-2022 Encounter for genera l adult medical examination without abnormal findings Jose Mccann [facility] Start: 05-18-2022 Telephone encounter Jose MONCADA [facility] Start: 11-22-2021 End: 11-23-[address] JOSE MCCANN Facility:[facility] Start: 09-12-2021 (Post-Op) Post-Op Sixto Ousmane II [facility] Start: 09-12-2021 End: 09-12-2021 ambulatory Sixto M Mancos II [employer] Other Start: 08-15-2021 End: 08-15-2021 ambulatory Sixto Mancos II Other [employer] Other Start: 08-15-2021 Office outpatient vi sit 15 minutes Sixto Ousmane II [facility] Start: 08-01-2021 (Post-Op) Post-Op Sixto Mancos II [facility] Start: 08-01-2021 End: 08-01-2021 ambulatory Sixto Ousmane II Other [employer] Other Start: 07-02-2021 End: 07-02-2021 ambulatory Cindy Reed Other [employer] Other Start: 07-02-2021 Postop follow up vis it related to original px Cindy Reed [facility] Start: 06-21-2021 End: 06-21-2021 ambulatory Sixto Ousmane II Other [employer] Other Start: 06-21-2021 Postop follow up vis it related to original px Sixto Mancos II [facility] Start: 06-15-2021 (Prolonged) Prolonge d Services Sixto Mancos II [facility] Start: 06-15-2021 End: 06-15-2021 ambulatory Sixto Mancos II Other [employer] Other Start: 06-12-2021 End: 06-12-2021 ambulatory Sixto Mancos II Other [employer] Other Start: 06-12-2021 Telephone encounter Sixto Mancos II [facility] Start: 05-31-2021 End: 05-31-2021 ambulatory Sixto Mancos II Other [employer] Other Start: 05-31-2021 Encounter for other preprocedural examination Sixto Romeo II [facility] Start: 05-31-2021 Patient encounter procedure Sixto Romeo II [facility] Start: 05-21-2021 End: 05-21-2021 ambulatory Sixto Romeo II Other [employer] Other Start: 05-21-2021 Telephone encounter Sixto Romeo II [facility] Start: 05-09-2021 End: 05-09-2021 ambulatory Sixto Romeo II Other [employer] Other Start: 05-09-2021 FQHC visit new patient Sixto flores II [facility] Start: 04-09-2021 End: 04-09-2021 ambulatory Mp Olexa Other [employer] Other Start: 04-09-2021 Telephone encounter Mp Olexa [facility] Start: 04-03-2021 End: 04-03-2021 ambulatory Mp Olexa Other [employer] Other Start: 04-03-2021 Encounter for other preprocedural examination Mp Olexa [facility] Start: 04-03-2021 Office outpatient ne w 45 minutes Mp Olexa [facility] Start: 05-30-2020 End: 05-31-2020 ambulatory UNKNOWN PROVIDER Facility:[facility] Procedures Date Procedure Procedure Detail Performing Clinician Start: 08-07-2022 Plain X-ray of left wrist DO Jose Mccann Work Phone: Start: 06-10-[address] GUPTA [facility] Comment on above: Performed By: #### P [facility] #### [facility] [address] [place] [address] Dr. Sydnie Reeves Immunizations Immunization Date Immunization Notes Care Provider Fa [facility] 04-02-2021 COVID-19 [employer] [place] [employer] Other [facility] 07-22-2020 COVID-19 [employer] [place] [employer] Other [facility] 06-24-2020 COVID-19 [employer] [place] [employer] Other [facility] 04-28-2019 Influenza, injectabl e, Madin Nat Canine Kidney, preservative free, quadrivalent DO [employer] Work Phone: [facility] Payers Date Payer Category Payer Unknown [id number] 1960 Unknown [id number] 1960 Unknown [id number] 2.16.84 [id number] 1960 Unknown [id number] 2.16.84 [id number] 1960 Unknown [id number] 2.16.84 [id number] 1960 Unknown [id number] 2.16.84 [id number] 1960 Unknown [id number] 2.16.8 [id number] 1959 Private Health Insurance [id number] 1959 Private Health Insurance [id number] 1959 Self-pay Unknown [id number] 2.16.8 [id number] Unknown [id number] 2.16.8 [id number] Unknown [facility] [id number] Unknown [id number] 2.16.84 [id number] Social History Date Type Detail Facility Sex Assigned At [employer] Other Sex Assigned At Sex Assigned At Bir th [employer] Other Start: 06-18-2021 Tobacco smoking status NHIS Ex-smoker (finding) [facility] Start: 1960 Sex Assigned At Male F [facility] Medical Equipment Procedure Code Equipment Code Equipment Origin al Text Equipment Identifier Dates Arthroplasty, hip, total, anterior approach Acetabular shell [id number] FDA Start: 06-18-2021 Arthroplasty, hip, total, anterior approach Ceramic femoral head prosthesis [id number] FDA Start: 06-18-2021 Arthroplasty, hip, total, anterior approach Coated hip femur prosthesis, modular [id number] FDA Start: 06-18-2021 Arthroplasty, hip, total, anterior approach Non-constrained polyethylene acetabular liner ()[id number] FDA Start: 06-18-2021 Clinical Notes 04-03-2021 to 05-23-2023 Note Date & Type Note Facility 05-23-2023 Evaluation note Encounter Date Diagnosis Assessment Notes May, Pulmonary nodule (ICD-10 - R91.1) [employer] Other 05-13-2023 Evaluation note* Encounter Date Diagnosis Assessment Notes Treatment Notes Treatment Clinical Notes August, Bronchitis (ICD-10 - J40) Acute bronchitis material was printed Drink plenty fluids, get plenty of rest. Take the doxycycline and prednisone as prescribed until gone. Use the albuterol inhaler as prescribed as needed for cough or shortness of breath. Continue take your aqes-oqc-udgikki cough medicine. Follow-up with your family physician if no improvement in 2 to 3-day [employer] Other 04-26-2023 Evaluation note* Encounter Date Diagnosis [...] no improvement in 5 to 7 days [employer] Other 03-14-2023 Evaluation note* Encounter Date Diagnosis Assessment Notes Treatment Notes Treatment Clinical Notes Jun, Scrotal mass (ICD-10 - N50.89) Ill defined right scrotal mass. Recommend US to assist in ID Jun, Polyuria (ICD-10 - R35.89) Likely unrelated to scrotal mass. BPH, monitor for now [employer] Other 02-06-2023 Evaluation note* Encounter Date Diagnosis [...] May, Hx of gout (ICD-10 - Z87.39) [employer] Other 02-04-2023 Evaluation note* Encounter Date Diagnosis Assessment Notes Treatment Notes Treatment Clinical Notes May, Pulmonary nodule (ICD-10 - R91.1) Left sided 5mm apical nodule, 6.2mm basilar nodule (initially noted on CT abd 05/2020) May, Wellness examination (ICD-10 - Z00.00) [employer] Other 06-01-2022 Evaluation note* Encounter Date Diagnosis Assessment Notes Treatment Notes Treatment Clinical Notes Sep, Arthritis of left hip (ICD-10 - M16.12) Sep, [place] (obstructive sleep apnea) (ICD-10 - G47.33) Sep, History of total left hip arthroplasty (ICD-10 - Z96.642) Sep, Other [facility] on 06/18/2021 Doing well Discussed post-op dental prophylaxis. Shared decision made to continue prophylactic antibiotics indefinitely. Follow-up at 1 year post-op for repeat examination and repeat x-rays. Patient instructed to call with any questions or concerns. [employer] Other 05-04-2022 Evaluation note* Encounter Date Diagnosis [...] we will have him come back yearly. [employer] Other 04-20-2022 Evaluation note* Encounter Date Diagnosis Assessment Notes Treatment Notes Treatment Clinical Notes Jul, Arthritis of left hip (ICD-10 - M16.12) Jul, [place] (obstructive sleep apnea) (ICD-10 - G47.33) Jul, History of total left hip arthroplasty (ICD-10 - Z96.642) Jul, Other [facility] on 06/18/2021 Doing well In regards to the incision area, I recommended that he keep it clean and dry. We also prescribed him 1 week of Duricef. I will plan to see him back in 2 weeks for a wound recheck. No x-rays at that time. Patient may continue increasing activities as tolerated. Continue taking wesu-biu-aqvktlg anti-inflammatorie s as needed for assistance with swelling and pain associated with the operative extremity. [employer] Other 03-21-2022 Evaluation note* Encounter Date Diagnosis [...] our office with any concerns or questions. [employer] Other 03-10-2022 Evaluation note* Encounter Date Diagnosis [...] from his surgery. Normally I would have [facility] home health physical therapy take [...] see him as regularly scheduled on 07/04. [employer] Other 03-04-2022 Evaluation note* Encounter Date Diagnosis [...] patient could proceed with surgery safely. The shopping centre manager was vital for surgery timing and [...] plans. Prolonged services time spent: 33 minutes [employer] Other 02-17-2022 Evaluation note* Encounter Date Diagnosis [...] accessible throughout. Joints Meeting Checklist - Pharmacy: [facility] to bed - Approach/Technique: Anterior, [place] table - Implants: Avenir Complete; G7 - Anesthesia: General - Blocks: Fascia iliaca - Preop Antibiotics: Ancef - TXA: Yes-systemic - Positioning/OR Bed: Supine on [place] bed - Intraop X-ray: Yes - Lopez: [...] elected to proceed with the above surgery. [employer] Other 01-26-2022 Evaluation note* Encounter Date Diagnosis [...] (ICD-10 - M81.0) Apr, Other exterminator helper (current) drug therapy (ICD-10 - Z79.899) Apr, [...] or absent clearances could delay their surgery. [employer] Other 12-28-2021 History general Narrative - Reported* Type Description Date Medical History high blood pressure Medical History [place] Surgical History exploratory pins in back and pe lvis Surgical History total right hip Surgical History left carpal tunnel release 03/15 12/02 Surgical History BILAT GREAT TOE SURGERY [employer] Other 12-21-2021 Evaluation note* Encounter Date Diagnosis [...] outcome. Mar, Pre-op examination (ICD-10 - Z01.818) [employer] Other Evaluation noteNort [email or web address] Other Evaluation noteNo InformationNort [email or web address] Other Evaluation noteNo assessment information available [facility] Work Phone: [facility] Narrative - ReportedNoThe [employer] Other [facility] general Narrative - Reported* Type Description Date Medical History high blood pressure Surgical History exploratory pins in back and pe lvis Surgical History total right hip [employer] Other History general Narrative - Reported* Type Description Date Medical History Hypertension Medical History Hypercholesterolemia Medical History [place] (obstructive sleep apnea) Medical History Pulmonary nodule Medical History Nicotine dependence in remission Surgical History exploratory pins in back and pe lvis Surgical History total right hip Surgical History left carpal tunnel release 03/15 12/02 Surgical History BILAT GREAT TOE SURGERY Hospitalization History SEE SURGICAL HX [employer] Other [facility]isszbj general Narrative - Reported* Type Description Date [...] LEFT HIP Hospitalization History SEE SURGICAL HX [employer] Other Summary Purpose Family History No Family History Records Found Relationship Condition Age at Onset Recorded Date/T nadeen father End-stage renal disease Unknown Not Specified Dementia Unknown Advance Directives No Advanced Directives Records Found Advance Directive Response Recorded Date/ Time Advance Directives Yes April 27, 2019 9:43am Additional Source Comments (unrecognized sect ion and content) No Status Records FoundNo Status Records FoundNo Status Records FoundNo Status Records FoundNo Status Records Found INFORMATION SOURCE (unrecogn ized section and content) DATE CREATED AUTHOR 05/21/2019 [facility] DATE CREATED AUTHOR AUTHOR'S ORGANIZ ATION 05/30/2021 [facility] DATE CREATED AUTHOR AUTHOR'S ORGANIZ ATION 08/08/2022 [facility] DATE CREATED AUTHOR AUTHOR'S ORGANIZ ATION 08/22/2022 [facility] DATE CREATED AUTHOR AUTHOR'S ORGANIZ ATION 10/29/2023 [facility] REASON FOR VISIT (unrecogniz ed section and content) Left Carpal TunnelLeft Hip P ainNo InformationHHVitamin DHistory & Physicalwound vac issueWound Vac RemovalRecheck LTHAWound RecheckRecheck LTHANo InformationWELLNESS MBLab Resultsbump on testiclesTHINK LEFT HAND-WRIST BROKELab Resultsnasal and chest cold X [address] chest Care Teams (unrecognized sec tion and content) Team Status: Active Member Role Status Dates Jose Mccann DO Primary Care Provider Active Team Status: Inactive [...] BE BASED ON THE PRIMARY CLINICAL RECORDS. [employer] provides no warranty or guarantee of the accuracy or completeness of information in this document.
[2023-11-19 07:48] VITALS: BP 148/91; PULSE 78; TEMP 36.3; O2SAT 95; BMI 33.2
[2023-11-19] MEDS: LACTATED RINGER'S SOLUTION 1,000 ML 50 ML IV (07:55)
--- NOTE | 2023-11-19 08:32 | PM.GSPRC ---
Date of procedure: 11/19/23 Indications for Procedure: Chronic nausea Chronic diarrhea Pre-op diagnosis: Chronic nausea/chronic diarrhea Post-op diagnosis: other (Esophagitis rule out Araiza's esophagus at 43 cm from the mouth/superficial gastritis without hemorrhage; normal colon rule out colitis) Procedure: EGD with biopsy antrum and distal esophagus Colonoscopy with random biopsies ascending colon, transverse colon, descending colon Findings: Superficial gastritis without hemorrhage Probable Araiza's esophagus GE junction Short segment Anesthesia: MAC Surgeon: Calos Louis Procedure Summary: PROCEDURE: The patient was taken to the Endoscopy Suite, placed in the left lateral recumbent position, given IV sedation as above. The Olympus EGD scope was advanced under direct visualization into the posterior pharynx esophagus into the stomach through the pylorus into the first second third and fourth portions of the duodenum which were completely normal. The scope was then returned to the stomach retroflexed on itself look at the GE junction which was normal. Patient had some petechial hemorrhage in the antrum of the stomach compatible with superficial gastritis without hemorrhage and biopsies were taken and hemostasis maintained. The scope was then withdrawn to the distal esophagus where he has what appears to be short segment Araiza's esophagus for which biopsies were taken to rule that out. The scope was then withdrawn from the rest of the esophagus which was normal. A rectal digital exam was performed. The sphincter tone was found to be normal. No rectal masses were appreciated. Prostate was smooth not enlarged without nodules. The Olympus video colonoscope was advanced under direct visualization to the rectum, sigmoid colon, descending colon, transverse colon and ascending colon to the ileocecal valve. The lumen was visualized. The underside of the valve was seen. The scope was slowly withdrawn with air being desufflated as it was withdrawn. No gross tumors or polyps were seen. He had a few small diverticuli noted in descending and sigmoid colon. Random biopsies were taken of the ascending transverse and descending colon to rule out collagenous colitis. The patient tolerated the procedure well and went to the Recovery Area in satisfactory condition. I recommend the patient have repeat screening colonoscopy in 10 years unless problems. We will call with results of biopsies and further recommendations afterwards. Most likely will recommend repeat EGD within 3 to 5 years because of Araiza's Estimated blood loss (mL): 1 Specimens: Antral and distal esophageal biopsies and colon biopsies Complications: No Condition: stable Disposition: PACU
[2023-11-19 09:03] VITALS: BP 123/74; PULSE 74; O2SAT 92
[2023-11-19 09:18] VITALS: BP 114/67; PULSE 74; O2SAT 92
[2023-11-19 09:33] VITALS: BP 143/84; PULSE 74; O2SAT 100
[2023-11-20 08:52] LABS: H Pylori Tissue, Urease Negative
== END 2023-11-19 09:33 | disposition home or self-care (01) ==
PROVIDERS: PCP Internal Medicine; Visit Provider Surgery
PROC: (CPT 813; principal; 2023-11-19 08:30)
DX: R11.0 Nausea (principal); K52.9 Noninfective gastroenteritis and colitis, unspecified; K20.90 Esophagitis, unspecified without bleeding; K22.70 Barrett's esophagus without dysplasia; K29.30 Chronic superficial gastritis without bleeding; R10.31 Right lower quadrant pain; G89.29 Other chronic pain; Z87.891 Personal history of nicotine dependence; G47.33 Obstructive sleep apnea (adult) (pediatric); I10 Essential (primary) hypertension
CPT/HCPCS: 43239; 45380; 87077; 88305; J2704

== ENCOUNTER 2024-03-26 13:02 | Outpatient (OUT) | payer OTHER, SELFPAY ==
--- NOTE | 2024-03-26 13:18 | CT_ITS ---
The [address] [address] Patient Name: LYNETTE RODRIGUEZ MRN: [id number] date: 1960 Sex: M Assigned Patient Location: LAB Current Patient Location: Accession/Order Number: [id number] Exam Date: 03/26/2024 13:35 Report Date: 03/27/2024 16:22 At the request of: MATT COVINGTON Procedure: CT abdomen pelvis wo/w con PROCEDURE: CT abdomen pelvis wo/w con CLINICAL INDICATION: 63 years Male BPH with obstruction, Gross hematuria COMPARISONS: CT abdomen pelvis dated 05/24/2020. TECHNIQUE: CT imaging of the abdomen and pelvis was performed without and with 100 mL of Omnipaque 300. Coronal and sagittal reformations were created. Individualized dose optimization technique was used for the procedure performed. FINDINGS: There is mild bibasilar scarring. There is no pleural or pericardial effusion. There are 2 nonobstructing right kidney interpolar region calculi measuring up to 4 mm. There is also a 2.4 cm right kidney lower pole cyst. Another 1.9 cm posterior left kidney interpolar region cyst is also identified. There is no hydronephrosis. No definite filling defects are seen within the opacified renal calyces or ureters. Evaluation of the urinary bladder is nondiagnostic due to extensive streak artifact from the patient's bilateral hip arthroplasty. There is severe fatty infiltration of the liver. Gallbladder, spleen, pancreas and adrenal glands are normal. Bowel loops are normal in course and caliber, there is no obstruction or free air. Appendix is normal. There is no ascites or adenopathy. There are mild vascular calcifications. There is surgically fusion of the sacroiliac joints and symphysis pubis. CT/CT abdomen pelvis wo/w con IMPRESSION: 1. No definite imaging etiology to explain patient's symptoms. Please note that evaluation of the urinary bladder is nondiagnostic due to extensive streak artifact from patient's bilateral hip arthroplasty. 2. Two nonobstructing right renal calculi. No evidence of urinary obstruction. 3. Severely fatty liver. Electronically authenticated by: ADRY SHELL Date: 03/27/2024 16:22
[2024-03-26 13:23] LABS: Estimated GFR (African America >60 (>=60 mL/min/1.73m^2); Estimated GFR (Non-African Ame >60 (>=60 mL/min/1.73m^2)
== END 2024-03-26 13:03 | disposition home or self-care (01) ==
LOC: LAB 13:02
PROVIDERS: PCP Internal Medicine; Visit Provider Nurse Practitioner
DX: N40.1 Benign prostatic hyperplasia with lower urinary tract symptoms (principal); R31.0 Gross hematuria; N20.0 Calculus of kidney
CPT/HCPCS: 36415; 74178; 82565; Q9967

== ENCOUNTER 2024-12-06 10:02 | Outpatient (RCR) | payer OTHER, SELFPAY ==
--- NOTE | 2024-09-02 14:03 | CR1_ITS ---
The [facility] Test Date: 2024-09-02 Pat Name: LYNETTE RODRIGUEZ Department: Room: - Gender: Male Biopsychologist: : 1960 Requested By: Antony Mcgarry Order Number: [id number] Maryam MD: Antony Mcgarry Interpretive Statements Okay to proceed with outlined treatment plan. Electronically Signed On 09-08-2024 9:16:12 EDT by Antony Mcgarry
--- NOTE | 2024-09-09 14:14 | CR1_ITS ---
The [facility] Test Date: 2024-09-09 Pat Name: LYNETTE RODRIGUEZ Department: Room: - Gender: Male Medical Coding Instructor: : 1960 Requested By: ELSY HANLEY Order Number: [id number] Maryam MD: Antony Mcgarry Interpretive Statements Okay to proceed with outlined treatment plan. Electronically Signed On 09-15-2024 16:36:52 EDT by Antony Mcgarry
--- NOTE | 2024-09-29 08:01 | CR1_ITS ---
The [facility] Test Date: 2024-09-29 Pat Name: LYNETTE RODRIGUEZ Department: Room: - Gender: Male Male Infertility Specialist: : 1960 Requested By: ELSY HANLEY Order Number: [id number] Maryam MD: Antony Mcgarry Interpretive Statements Understandable patient has to miss classes d/t chemotherapy. It is good he is attempting to keep up the cardiac rehabilitation program during this time. Electronically Signed On 09-29-2024 18:00:08 EDT by Antony Mcgarry
--- NOTE | 2024-10-11 11:13 | PC.NURSE ---
Outreached patient, rescheduled for this week
--- NOTE | 2024-10-26 15:06 | CR1_ITS ---
The [facility] Test Date: 2024-10-26 Pat Name: LYNETTE RODRGIUEZ Department: Room: - Gender: Male Show Host/Hostess: : 1960 Requested By: VIKAS ARANGO Order Number: [id number] Maryam MD: Antony Mcgarry Interpretive Statements Okay to continue with outlined treatment plan. Electronically Signed On 10-27-2024 7:57:16 EDT by Antony Mcgarry
--- NOTE | 2024-11-26 10:58 | CR1_ITS ---
The [facility] Test Date: 2024-11-26 Pat Name: LYNETTE RODRIGUEZ Department: Room: - Gender: Male Component Lab Tech: : 1960 Requested By: SARAH RUDOLPH M.D. Order Number: [id number] Reading MD: Gisella Mcfadden Interpretive Statements Session Date: Electronically Signed On 12-10-2024 13:27:59 EDT by Gisella Mcfadden
--- NOTE | 2024-12-20 13:49 | PC.NURSE ---
called to outreach patient as he has not been seen in some time. patient had surgery for bladder ca, and was on the table 12 hours which was longer than expected. Patient to follow up post op this week and will reach out when he is cleared from the provider.
--- NOTE | 2024-12-27 07:35 | CR1_ITS ---
The [facility] Test Date: 2024-12-27 Pat Name: LYNETTE RODRIGUEZ Department: Room: - Gender: Male Tax Attorney: : 1960 Requested By: VIKAS ARANGO Order Number: [id number] Maryam MD: SARAH RUDOLPH M.D. Interpretive Statements Patient may continue cardiac rehab as outlined in the treatment plan. Electronically Signed On 12-29-2024 18:01:53 EDT by SARAH RUDOLPH M.D.
--- NOTE | 2025-01-11 13:12 | PC.NURSE ---
outreach letter sent re: halfway abscence from phase 2 rehab will follow up in 2 weeks if no response
--- NOTE | 2025-02-09 14:50 | PC.NURSE ---
outreach letter sent- we have not heard from patient since last contact attempts. if no reponse from patient by 03-03-25 he will be discharged due to non-attendance. we do hope he returns to finish his remaining visits
--- NOTE | 2025-02-25 07:13 | CR1_ITS ---
The [facility] Test Date: 2025-02-25 Pat Name: LYNETTE RODRIGUEZ Department: Room: - Gender: Male Information Technology Internship: : 1960 Requested By: VIKAS ARANGO Order Number: [id number] Maryam MD: SARAH RUDOLPH M.D. Interpretive Statements Electronically Signed On 02-25-2025 19:19:05 EST by SARAH RUDOLPH M.D.
== END 2025-02-25 07:28 | disposition home or self-care (01) ==
LOC: CR 10:02
PROVIDERS: PCP Internal Medicine
DX: Z48.812 Encounter for surgical aftercare following surgery on the circulatory system (principal); Z95.2 Presence of prosthetic heart valve
CPT/HCPCS: 93798